=== PATIENT | male | born 1930 | race Caucasian/White ===

== ENCOUNTER 2016-09-26 13:22 | Inpatient (IN) | payer MEDICARE, OTHER ==
[~2016-09-26] VITALS: Ht 188 cm; Wt 83.9 kg
[2016-09-26] VITALS (11 sets, daily range): BP systolic 103–127; BP diastolic 55–88
[2016-09-26] MEDS ORDERED: NS IV 1000 ML 1,000 ML ONE (14:42)
--- NOTE | 2016-09-26 14:59 | Consultation ---
History of Present Illness History of Present Illness Patient Consulted On(baldo/time) 09/26/16 14:53 Date of Admission 09/26/16 History of Present Illness Pt is an 86 yo male transferred down from [facility]. Pt apparently was at home and had a syncopal episode and reported black tarry stools for 2-3 days, 5-6 BM's per day. Pt denies striking his head and does not complain of any head or neck pain. He was hypotensive in the ER at [place], but was transfused 1 unit PRBC and give 1 liter of fluid. Since then his SBP has been above 100 and MAP has been 65- 70. I met pt in the ICU when he got here. He denies abdominal pain, states he has not passed out before this episode. He denies previous black tarry stools, no hematochezia. Denies any hematemesis. He denies fever or chills. He does not appear to be in any distress. Allergies and Home Medications Allergies Coded Allergies: Penicillins (Verified Allergy, Unknown, 09/26/16) Past Piehdrn-Xaajth-Rqceqn Hx Patient Social History Alcohol Use: Denies Use Recreational Drug Use: No Smoking Status: Former Smoker (smoked for 34 years) Cigarettes Per Day: 20 Former Smoker/When Quit: Feb 28, 1987 Type Used: Cigarettes 2nd Hand Smoke Exposure: No Recent Foreign Travel: No Contact w/Someone Who Travel: No Recent Infectious Disease Expo: No Recent Hopitalizations: No Seasonal Allergies Seasonal Allergies: No Surgeries HX Surgeries: Yes Surgeries: Appendectomy, CABG, Defibrillator, Gallbladder, Prostatectomy Respiratory Hx Respiratory Disorders: No Cardiovascular Hx Cardiac Disorders: Yes Cardiac Disorders: Atrial Fibrillation, Coronary Artery Disease, Hypertension Neurological Hx Neurological Disorders: No Reproductive System Hx Reproductive Disorders: No Sexually Transmitted Disease: No HIV/AIDS: No Genitourinary Genitourinary Disorders: Prostate Problems Gastrointestinal Hx Gastrointestinal Disorders: Yes Gastrointestinal Disorders: Gastrointestinal Bleed, Gall Bladder Disease Musculoskeletal Hx Musculoskeletal Disorders: Yes Musculoskeletal Disorders: Arthritis Endocrine Hx Endocrine Disorders: No HEENT HX ENT Disorders: No Loss of Vision: Denies Hearing Impairment: Hard of Hearing Cancer Hx Cancer: No Psychosocial Hx Psychiatric Problems: No Integumentary HX Skin/Integumentary Disorder: No Blood Transfusions Hx Blood Disorders: No Adverse Reaction to a Blood Tr: No Family Medical History Significant Family History: Other Conditions/Hx (Pt denies any DM, CAD or HTN in his parents or siblings. Although, he also doesn't quite remember) Review of Systems-General Constitutional: No chills, No diaphoresis, dizziness EENTM: No blurred vision, No epistaxis, No mouth swelling, No nose congestion, No throat pain Respiratory: No cough, No dyspnea on exertion, No hemoptysis Cardiovascular: No chest pain, Hx of Intervention, palpitations Gastrointestinal: No abdominal pain, No jaundice, melena, No nausea, No vomiting Genitourinary: No dysuria, No frequency, No hematuria Musculoskeletal: joint pain, joint swelling, muscle stiffness Skin: No change in color, No change in hair/nails Psychiatric/Neurological: Denies Anxiety, Depressed, Denies Pre-Existing Deficit, Denies Seizure, Denies Tremors, Other (syncope and light headedness) Other pt denies any heat or cold intolerance. He does bruise easily but is on Xarelto Physical Exam-General Problems Physical Exam Vital Signs Capillary Refill : General Appearance: WD/WN, no apparent distress Eyes: Bilateral Eye EOMI, Bilateral Eye PERRL HEENT: pharynx normal, No scleral icterus (R), No scleral icterus (L) Neck: supple, normal inspection, No tender midline, No thyromegaly Respiratory: lungs clear, normal breath sounds, no respiratory distress, no accessory muscle use Cardiovascular: regular rate, rhythm, no edema, no murmur Peripheral Pulses: 4+ Carotid (R), 4+ Carotid (L), 4+ Radial Pulses (R), 4+ Radial Pulses (L) Gastrointestinal: non tender, soft, no organomegaly, no pulsatile mass, other ( pt has multiple scars from previous surgery) Rectal: deferred Back: no CVA tenderness, no vertebral tenderness Extremities: non-tender, no pedal edema, no calf tenderness Neurologic/Psychiatric: chief chemist II-XII nml as tested, no motor/sensory deficits, alert, normal mood/affect, oriented x 3, other (pt doesn't remember everything, so has hard time answering some questions (mostly about family hx, etc)) Skin: warm/dry, ecchymosis (on hand and arms), pallor (very mild) Lymphatic: no adenopathy (neck, axilla or groin) Assessment/Plan Assessment/Plan Assessment/Plan 1. Upper GI bleed - monitor H/H, vitals. NPO after midnight. Plan for EGD at 9am tomorrow Discussed all risks and complications with pt; including but not limited to pain, bleeding, esophageal rupture 2. CAD, A fib - defibrillator implanted 3. Anemia - s/p transfusion, will monitor and hopefully EGD will help with diagnosis 4. Thrombocytopenia - new according to pt, Hematology consulted. This will increase pt's risks with EGD. 5. HTN- continue meds, but hold if SBP drops below 100 SAUL LISA DO Sep 26, 2016 14:59
[2016-09-26] MEDS: NS IV 1000 ML 1,000 ML IV SCH ×2 (15:00→23:37)
[2016-09-26] MEDS ORDERED: ATOR20TA49 PO (15:07)
[2016-09-26] MEDS ORDERED: RAMI5CAP PO (15:07)
[2016-09-26] MEDS ORDERED: CARV12.52 PO (15:07)
[2016-09-26] MEDS ORDERED: RIVA20TA PO (15:07)
[2016-09-26] MEDS ORDERED: ASPI-999 PO (15:08)
[2016-09-26 15:58] LABS: BASOPHILS # (AUTO) 0.1 10^3/uL (0.0-0.1); BASOPHILS % (AUTO) 1 % (0-10); EOSINOPHILS # (AUTO) 0.2 10^3/uL (0.0-0.3); EOSINOPHILS % (AUTO) 2 % (0-10); LYMPHOCYTES # (AUTO) 1.9 X 10^3 (1.0-4.0); LYMPHOCYTES % (AUTO) 15 % (12-44); MEAN CORPUSCULAR HEMOGLOBIN 26 PG (25-34); MEAN CORPUSCULAR HGB CONC 33 G/DL (32-36); MEAN CORPUSCULAR VOLUME 80 FL (80-99); MEAN PLATELET VOLUME 9.8 FL (7.4-10.4); MONOCYTES # (AUTO) 0.7 X 10^3 (0.0-1.0); MONOCYTES % (AUTO) 5 % (0-12); NEUTROPHILS # (AUTO) 9.7 X 10^3 (1.8-7.8); NEUTROPHILS % (AUTO) 77 % (42-75); RED BLOOD COUNT 4.43 10^6/uL (4.35-5.85); RED CELL DISTRIBUTION WIDTH 16.1 % (10.0-14.5); RETICULOCYTE % 1.44 % (0.50-2.40); WHITE BLOOD COUNT 12.6 10^3/uL (4.3-11.0)
--- NOTE | 2016-09-26 15:59 | History & Physical-Hospitalist ---
HPI History of Present Illness: HPI/Chief Complaint 86yoCM with PMH of CAD s/p CABG and AICD placement on Xarelto presented to OSH with CC of syncope and melena x2-3 days. He reports he fell and was very weak this morning and was unable to get up. He immediately called EMS which brought him to [facility]. He was found to have black tarry stools, an acute drop in his baseline hgb from 16->11 and to be profoundly thrombocytopenic at 12k. His SBP was 60. He was given 1L NS and 1u pRBCs and transferred here. Upon my exam he denies any complaints. He reports he is doing well and does not feel SOB, fatigued, or weak. He is unsure of the reason he is on Xarelto. He denies any history of blood clots or a-fib (though this is listed on his history here) . He otherwise has no complaints. Source: patient, family, RN/MD Exam Limitations: no limitations Date Seen 09/26/16 Attending Physician Markos Colindres MD PCP Unknown Referring Physician Date of Admission Sep 26, 2016 at 14:41 Home Medications & Allergies Home Medications Reviewed patient Home Medication Reconciliation Form Allergies Allergies Coded Allergies Penicillins (Verified Allergy, Unknown, 09/26/16) Past Jchwpkt-Xdnrus-Rnocar Hx Patient Social History Marrital Status: Alcohol Use: Denies Use Recreational Drug Use: No Smoking Status: Former Smoker (smoked for 34 years) Cigaretts per day: 20 Former smoker/When Quit: Feb 28, 1987 Type Used: Cigarettes 2nd Hand Smoke Exposure: No Recent Foreign Travel: No Contact w/other who traveled: No Recent Hopitalizations: No Recent Infectious Disease Expo: No Seasonal Allergies Seasonal Allergies: No Surgeries HX Surgeries: Yes Surgeries: Appendectomy, CABG, Defibrillator, Gallbladder, Prostatectomy Respiratory Hx Respiratory Disorders: No Cardiovascular Hx Cardiovascular Disorders: Yes Cardiac Disorders: Atrial Fibrillation, Coronary Artery Disease, Hypertension Neurological Hx Neurological Disorders: No Reproductive System Hx Reproductive Disorders: No Sexually Transmitted Disease: No HIV/AIDS: No Genitourinary Genitourinary Disorders: Prostate Problems Gastrointestinal Hx Gastrointestinal Disorders: Yes Gastrointestinal Disorders: Gastrointestinal Bleed, Gall Bladder Disease Musculoskeletal Hx Musculoskeletal Disorders: Yes Musculoskeletal Disorders: Arthritis Endocrine Hx Endocrine Disorders: No HEENT HX ENT Disorders: No Loss of Vision: Denies Hearing Impairment: Hard of Hearing Cancer Hx Cancer: No Psychosocial Hx Psychiatric Problems: No Integumentary HX Skin/Integumentary Disorder: No Blood Transfusions Hx Blood Disorders: No Adverse Reaction to a Blood Tr: No Family Medical History Significant Family History: Heart Disease, Hypertension, Other Conditions/Hx ( Pt denies any DM, CAD or HTN in his parents or siblings. Although, he also doesn't quite remember) Review of Systems Constitutional: dizziness, weakness Respiratory: no symptoms reported Cardiovascular: no symptoms reported Gastrointestinal: see HPI, melena Genitourinary: other (denies hematuria,dysuria) Skin: no symptoms reported Psychiatric/Neurological: No Symptoms Reported Physical Exam Physical Exam Vital Signs Vital Sign - Last 12Hours 09/26/16 14:42 B/P (MAP) 120/88 Capillary Refill : General Appearance: No Apparent Distress, WD/WN Eyes: Bilateral Eye Normal Inspection, Bilateral Eye PERRL HEENT: PERRL/EOMI, Pharynx Normal Neck: Non Tender, Supple Respiratory: Chest Non Tender, Lungs Clear Cardiovascular: Regular Rate, Rhythm, No Edema, No JVD, No Murmur Gastrointestinal: Normal Bowel Sounds, No Organomegaly, Non Tender, Soft Rectal: Normal Exam, Black Stool Back: Normal Inspection Skin: Other (redness/stage 1 ulcer on coccyx) Results Results/Procedures Lab Laboratory Tests 09/26/16 15:47 Assessment/Plan Admission Diagnosis upper gi bleed Assessment and Plan Upper GI Bleed - IV Protonix - CBC/Coags now -H&H Q6 - Surgeyry consulted, appreciate recs - NPO, EGD in AM - T&S - Check FOBT here (though on my exam melena apparent) Reported Thrombocytopenia - ?consumptive vs lab error - Repeating CBC now, along with d dimer, fibrinogen, smear - no purpura seen - Hem consulted/ appreciate recs - transfuse to keep plts >50k given active bleed if they remain low on recheck CAD s/p CABG questionable h/o a-fib - Hold Xarelto - Monitor BP closely and hold home antihypertensives/BB - Unsure of systolic function so will monitor I/Os closely - Presuming poor EF given AICD placement - Continuous pulse ox to monitor resp status Dispo: EGD in AM. Monitor in ICU overnight. Markos Colindres MD 51min critical care time spent directing patient care. MARKOS COLINDRES MD Sep 26, 2016 15:59
[2016-09-26 16:12] LABS: PATH WILL NEED TO REVIEW SMEAR PATH TO REVIEW; PLATELET COUNT 1059 10^3/uL (130-400)
[2016-09-26 16:14] LABS: ALANINE AMINOTRANSFERASE 40 U/L (0-55); ALBUMIN 3.1 G/DL (3.2-4.5); ANION GAP 7 MMOL/L (5-14); ASPARTATE AMINO TRANSFERASE 31 U/L (5-34); BILIRUBIN,TOTAL 1.3 MG/DL (0.1-1.0); BLOOD UREA NITROGEN 38 MG/DL (7-18); BUN/CREATININE RATIO 44; CALCIUM 8.3 MG/DL (8.5-10.1); CARBON DIOXIDE 21 MMOL/L (21-32); CHLORIDE 112 MMOL/L (98-107); CREATININE SERUM 0.86 MG/DL (0.60-1.30); GFR ESTIMATED > 60; GLUCOSE 108 MG/DL (70-105); POTASSIUM 4.3 MMOL/L (3.6-5.0); SODIUM 140 MMOL/L (135-145); TOTAL PROTEIN 5.5 G/DL (6.4-8.2)
[2016-09-26 16:33] LABS: INR 1.5 (0.8-1.4)
[2016-09-26 16:46] LABS: EOSINOPHILS % (MANUAL) 2 %; LYMPHOCYTES % (MANUAL) 13 %; NEUTROPHILS % (MANUAL) 84 %
[2016-09-26 16:47] LABS: BURR CELLS SLIGHT; POIKILOCYTOSIS SLIGHT
--- NOTE | 2016-09-26 18:11 | Oncology Consultation ---
Visit Information Visit Information Date of Admission Sep 26, 2016 at 14:41 Attending Physician Nedra Colindres MD Admitting Physician Unknown Chief Complaint weak and near pass out, black tarry stool Interval History Mr. Wade is a 86 year old white man transferred from [facility] to our ICU for management of acute GI bleeding, hypotension noticed at local ER and syncope episode. Pt is a poor historian. He told me that he had black stool and felt weak for 2-3 days. He has been on Xarelto for CAD, s/p stents and patient said that he was on it for many years. He could not remember that last time he saw his family doctor or case sealer. No fever chills. No abdominal pain or heart burn. No constipation. He wants to know when he can go home. I consulted the patient on: 09/26/16 18:05 Constitutional: dizziness Respiratory: no symptoms reported Cardiovascular: syncope Gastrointestinal: melena Health Status Allergies Coded Allergies: Penicillins (Verified Allergy, Unknown, 09/26/16) Home Medications Aspirin (Aspirin) 81 Mg Tab.chew, 81 MG PO DAILY, (Reported) Atorvastatin Calcium (Lipitor) 20 Mg Tablet, 20 MG PO HS, (Reported) Carvedilol (Coreg) 12.5 Mg Tablet, 12.5 MG PO BID, (Reported) Ramipril (Altace) 5 Mg Capsule, 5 MG PO DAILY, (Reported) Rivaroxaban (Xarelto) 20 Mg Tablet, 20 MG PO DAILY, (Reported) AIR-Lbqgja-Mtgkof Hx Patient Social History Marrital Status: Alcohol Use: Denies Use Recreational Drug Use: No Smoking Status: Former Smoker Cigaretts per day: 20 Former smoker/When Quit: Feb 28, 1987 Type Used: Cigarettes 2nd Hand Smoke Exposure: No Recent Foreign Travel: No Contact w/other who traveled: No Recent Infectious Disease Expo: No Recent Hopitalizations: Yes ([place] FROM [place]) Physical Abuse Screen: No Sexual Abuse: No Family Medical History Significant Family History: Heart Disease, Hypertension, Other Conditions/Hx ( Pt denies any DM, CAD or HTN in his parents or siblings. Although, he also doesn't quite remember) Family History: Patient reports no known family medical history. Physical Exam Vital Signs Vital Sign - Last 12Hours 09/26/16 14:35 Temp 96.8 Pulse 77 Resp 15 B/P (MAP) 120/67 Pulse Ox 98 O2 Delivery Room Air Capillary Refill : Less Than 3 Seconds General Appearance: No Apparent Distress HEENT: PERRL/EOMI Neck: Non Tender, Supple Respiratory: Lungs Clear, No Accessory Muscle Use, No Respiratory Distress Cardiovascular: Regular Rate, Rhythm, No Edema, No JVD, No Murmur, Other ( pacemaker cardiac device) Gastrointestinal: Non Tender, Soft Extremity: Non Tender Neurologic/Psychiatric: Alert, Oriented x3 Data Review Labs Laboratory Tests 09/26/16 15:47 09/26/16 23:39 09/27/16 06:00 Laboratory Tests 09/26/16 15:47: White Blood Count 12.6H, Hemoglobin 11.7L, Hematocrit 36L, Red Cell Distribution Width 16.1H, Platelet Count 1059*H, Neutrophils (%) (Auto) 77H, Neutrophils # (Auto) 9.7H, Prothrombin Time 18.0H, INR Comment 1.5H, Chloride Level 112H, Blood Urea Nitrogen 38H, Glucose Level 108H, Calcium Level 8.3L, Total Bilirubin 1.3H, Total Protein 5.5L, Albumin 3.1L 09/26/16 23:39: Hemoglobin 11.6L, Hematocrit 35L 09/27/16 06:00: Hemoglobin 11.8L, Hematocrit 36L, Red Cell Distribution Width 16.3H, Platelet Count 1049*H, Neutrophils # (Auto) 8.0H, Chloride Level 113H, Blood Urea Nitrogen 26H, Glucose Level 108H, Calcium Level 8.4L, Basophils # (Auto) 0.2H, Carbon Dioxide Level 20L Impression & Plan Impression & Plan IMP: 1. Acute GI bleeding with black tarry stool, hypotension and syncope episodes. 2. Thrombocytosis, Plt over a million. Most likely reactive but can not completely rule out polycythemia vera (PV) or essential thrombocytosis (ET) 3. Anemia Hb 11. Pt had one unit of RBC transfusion at local hospital before the transfer 4. Mildly elevated leukocytosis, most likely reactive 5. CAD, ? h/o AFib, s/p stents on Xarelto. Plan: 1. Stop Xarelto for now until we know what is going on in his GI track. 2. Agree GI scope tomorrow. 3. No RBC transfusion needed unless Hb below 9. Monitor Hb and Hct q6hrs for next 24hrs. 4. Agree with Protonix 5. Gentle IVF 6. Once GI bleeding stops and stable, he can go home but needs to have follow up with me at the cancer center clinic in 1-2 weeks to make sure that his blood counts back to normal. 7. Will check ALAINA-2 mutation from the blood, if +, then highly suggestive of PV , I will arrange bone marrow asp/biospy as out-pt procedure. ALLI PRATT MD Sep 26, 2016 18:11
--- NOTE | 2016-09-26 18:28 | Consultation-Cardiology ---
HPI-Cardiology Cardiology Consultation Date of Consultation 09/26/16 Date of Admission Indication: GI bleed HPI 86-year-old gentleman with history of coronary artery disease, history of pacemaker/ICD, patient is a poor historian does not recall any of his cardiac problems. Expressed that his been having melanotic stool for the last 2-3 days , today he had a syncopal episode, has been having significant weakness, unable to provide full detailed history, the history was obtained by reviewing his records. He was noted to have anemia, received blood transfusion and IV fluid, scheduled for possible endoscopy. Currently laying down in bed, feeling better , reporting that he is expecting to go home tomorrow, initially in the emergency room he was hypotensive. Currently blood pressure is better Home Medications & Allergies Allergies: Coded Allergies: Penicillins (Verified Allergy, Unknown, 09/26/16) Home Medication List Reviewed: Yes TWX-Sdzwqr-Wscukd Hx Patient Social History Marital Status: Alcohol Use: Denies Use Recreational Drug Use: No Smoking Status: Former Smoker Cigaretts per day: 20 Former smoker/When Quit: Feb 28, 1987 Type Used: Cigarettes 2nd Hand Smoke Exposure: No Recent Foreign Travel: No Recent Infectious Disease Expo: No Recent Hopitalizations: Yes ([place] FROM [place]) Physical Abuse Screen: No Sexual Abuse: No Past Medical History past medical history as discussed with Family Medical History Significant Family History: Heart Disease, Hypertension, Other Conditions/Hx ( Pt denies any DM, CAD or HTN in his parents or siblings. Although, he also doesn't quite remember) Family Medical Hx noncontributory to his current condition Family History: Patient reports no known family medical history. Constitutional: see HPI, malaise, weakness EENTM: no symptoms reported, see HPI Respiratory: no symptoms reported, see HPI Cardiovascular: see HPI, No chest pain, No edema, No Hx of Intervention, No palpitations, No syncope, No vascular heart diseas, No other Gastrointestinal: no symptoms reported, see HPI Genitourinary: no symptoms reported, see HPI Musculoskeletal: no symptoms reported, see HPI Skin: no symptoms reported, see HPI Psychiatric/Neurological: No Symptoms Reported, See HPI Reviewed Test Results Reviewed Test Results Lab Laboratory Tests Test 09/26/16 15:47 Range/Units White Blood Count 12.6 H 4.3-11.0 10^3/uL Red Blood Count 4.43 4.35-5.85 10^6/uL Hemoglobin 11.7 L 13.3-17.7 G/DL Hematocrit 36 L 40-54 % Mean Corpuscular Volume 80 80-99 FL Mean Corpuscular Hemoglobin 26 25-34 PG Mean Corpuscular Hemoglobin Concent 33 32-36 G/DL Red Cell Distribution Width 16.1 H 10.0-14.5 % Platelet Count 1059 *H 130-400 10^3/uL Mean Platelet Volume 9.8 7.4-10.4 FL Neutrophils (%) (Auto) 77 H 42-75 % Lymphocytes (%) (Auto) 15 12-44 % Monocytes (%) (Auto) 5 0-12 % Eosinophils (%) (Auto) 2 0-10 % Basophils (%) (Auto) 1 0-10 % Neutrophils # (Auto) 9.7 H 1.8-7.8 X 10^3 Lymphocytes # (Auto) 1.9 1.0-4.0 X 10^3 Monocytes # (Auto) 0.7 0.0-1.0 X 10^3 Eosinophils # (Auto) 0.2 0.0-0.3 10^3/uL Basophils # (Auto) 0.1 0.0-0.1 10^3/uL Neutrophils % (Manual) 84 % Lymphocytes % (Manual) 13 % Monocytes % (Manual) 1 % Eosinophils % (Manual) 2 % Smudge Cells SLIGHT Platelet Estimate INCREASED Poikilocytosis SLIGHT Leif Cells SLIGHT Elliptocytes SLIGHT Blood Morphology Comment Absolute Reticulocyte Count 64 24-90 10e9/L Percent Reticulocyte Count 1.44 0.50-2.40 % Prothrombin Time 18.0 H 12.2-14.7 SEC INR Comment 1.5 H 0.8-1.4 Fibrinogen 229 221-496 MG/DL D-Dimer 0.30 0.00-0.49 UG/ML Sodium Level 140 135-145 MMOL/L Potassium Level 4.3 3.6-5.0 MMOL/L Chloride Level 112 H 98-107 MMOL/L Carbon Dioxide Level 21 21-32 MMOL/L Anion Gap 7 5-14 MMOL/L Blood Urea Nitrogen 38 H 7-18 MG/DL Creatinine 0.86 0.60-1.30 MG/DL Estimat Glomerular Filtration Rate > 60 BUN/Creatinine Ratio 44 Glucose Level 108 H 70-105 MG/DL Calcium Level 8.3 L 8.5-10.1 MG/DL Total Bilirubin 1.3 H 0.1-1.0 MG/DL Aspartate Amino Transf (AST/SGOT) 31 5-34 U/L Alanine Aminotransferase (ALT/SGPT) 40 0-55 U/L Alkaline Phosphatase 49 40-136 U/L Total Protein 5.5 L 6.4-8.2 G/DL Albumin 3.1 L 3.2-4.5 G/DL Physical Exam Vital Signs Vital Sign - Last 12Hours 09/26/16 14:35 Temp 96.8 Pulse 77 Resp 15 B/P (MAP) 120/67 Pulse Ox 98 O2 Delivery Room Air Capillary Refill : Less Than 3 Seconds General Appearance: WD/WN, Mild Distress Eyes: Bilateral Eye EOMI, Bilateral Eye Normal Inspection, Bilateral Eye PERRL HEENT: PERRL/EOMI, TMs Normal, Normal ENT Inspection, Pharynx Normal Neck: Full Range of Motion, Normal Inspection, Non Tender, Supple, Carotid Bruit Respiratory: Chest Non Tender, Lungs Clear, Normal Breath Sounds, No Accessory Muscle Use, No Respiratory Distress Cardiovascular: No Edema, No Gallop, No JVD, Normal Peripheral Pulses, Systolic Murmur, Gallop/S3 Gastrointestinal: Normal Bowel Sounds, No Organomegaly, No Pulsatile Mass, Non Tender, Soft Back: Normal Inspection, No CVA Tenderness, No Vertebral Tenderness Extremity: Normal Capillary Refill, Normal Inspection, Normal Range of Motion, Non Tender, No Calf Tenderness, No Pedal Edema Neurologic/Psychiatric: Alert, Oriented x3, No Motor/Sensory Deficits, Normal Mood/Affect Skin: Normal Color, Warm/Dry Lymphatic: No Adenopathy A/P-Cardiology Admission Diagnosis GI bleed Anemia Coronary artery disease Hypotension Assessment/Plan GI bleed, probably upper GI bleed, patient has been on Xarelto which is held, continue to monitor, continue with IV fluid and blood transfusion as needed, Dr. Garcia was consulted, appreciated input. Coronary artery disease, history of CABG, currently clinically stable, abnormal EKG, I'll try to obtain copy of his records from [facility] Permanent pacemaker/ICD, appeared to be functioning normally, we'll interrogate pacemaker. Patient has been maintained on Xarelto, probably underlying atrial fibrillation , pacemaker interrogation will help once we identify the pacemaker. Anemia, secondary to GI bleed. Monitor H&H Hypotension, secondary to hypovolemia, receiving IV fluids, continue to monitor at this time. Thrombocytosis, probably reactive to bleeding. Continue to monitor, Dr. Garcia is managing. Hyperlipidemia, currently nothing by mouth. Continue to monitor. Confusion, dementia, unknown duration, managed by primary care physician History of gallstones, appendectomy, prostatectomy Clinical Quality Measures DVT/VTE Risk/Contraindication: Risk Factor Score Per Nursin RFS Level Per Nursing on Admit: 4+=Very High NIC LOVE MD Sep 26, 2016 6:28 pm
[2016-09-26] MEDS: PANTOPRAZOLE 40 MG/10 ML (PROTONIX) VIAL IV SCH (21:33)
[2016-09-27] VITALS (16 sets, daily range): BP systolic 94–148; BP diastolic 55–81
[2016-09-27] MEDS ORDERED: MAGNESIUM 1 GM/100 ML IVPB 100 ML IV SCH (06:00)
[2016-09-27] MEDS ORDERED: POTASSIUM CL 10MEQ/50ML IVPB 50 ML IV SCH (06:00)
[2016-09-27] MEDS ORDERED: KCL 20 MEQ TAB (K-DUR) PO SCH (06:00)
[2016-09-27 06:13] LABS: BASOPHILS # (AUTO) 0.2 10^3/uL (0.0-0.1); BASOPHILS % (AUTO) 2 % (0-10); EOSINOPHILS # (AUTO) 0.2 10^3/uL (0.0-0.3); EOSINOPHILS % (AUTO) 2 % (0-10); LYMPHOCYTES # (AUTO) 1.9 X 10^3 (1.0-4.0); LYMPHOCYTES % (AUTO) 17 % (12-44); MEAN CORPUSCULAR HEMOGLOBIN 26 PG (25-34); MEAN CORPUSCULAR HGB CONC 33 G/DL (32-36); MEAN CORPUSCULAR VOLUME 80 FL (80-99); MONOCYTES # (AUTO) 0.6 X 10^3 (0.0-1.0); MONOCYTES % (AUTO) 6 % (0-12); NEUTROPHILS % (AUTO) 74 % (42-75); RED BLOOD COUNT 4.48 10^6/uL (4.35-5.85); RED CELL DISTRIBUTION WIDTH 16.3 % (10.0-14.5); WHITE BLOOD COUNT 10.9 10^3/uL (4.3-11.0)
[2016-09-27 06:32] LABS: ANION GAP 6 MMOL/L (5-14); BLOOD UREA NITROGEN 26 MG/DL (7-18); BUN/CREATININE RATIO 31; CALCIUM 8.4 MG/DL (8.5-10.1); CARBON DIOXIDE 20 MMOL/L (21-32); CHLORIDE 113 MMOL/L (98-107); CREATININE SERUM 0.83 MG/DL (0.60-1.30); GFR ESTIMATED > 60; GLUCOSE 108 MG/DL (70-105); MAGNESIUM 1.9 MG/DL (1.8-2.4); PHOSPHORUS 2.3 MG/DL (2.3-4.7); PLATELET COUNT 1049 10^3/uL (130-400); POTASSIUM 4.1 MMOL/L (3.6-5.0); SODIUM 139 MMOL/L (135-145)
--- NOTE | 2016-09-27 07:57 | Oncology Progress Note ---
Subjective Subjective/Events-last exam No new issue. Hemodynamic stable GI scope today Data Review Labs Laboratory Tests 09/26/16 15:47 09/26/16 23:39 09/27/16 06:00 Laboratory Tests 09/26/16 15:47: White Blood Count 12.6H, Hemoglobin 11.7L, Hematocrit 36L, Red Cell Distribution Width 16.1H, Platelet Count 1059*H, Neutrophils (%) (Auto) 77H, Neutrophils # (Auto) 9.7H, Prothrombin Time 18.0H, INR Comment 1.5H, Chloride Level 112H, Blood Urea Nitrogen 38H, Glucose Level 108H, Calcium Level 8.3L, Total Bilirubin 1.3H, Total Protein 5.5L, Albumin 3.1L 09/26/16 23:39: Hemoglobin 11.6L, Hematocrit 35L 09/27/16 06:00: Hemoglobin 11.8L, Hematocrit 36L, Red Cell Distribution Width 16.3H, Platelet Count 1049*H, Neutrophils # (Auto) 8.0H, Chloride Level 113H, Blood Urea Nitrogen 26H, Glucose Level 108H, Calcium Level 8.4L, Basophils # (Auto) 0.2H, Carbon Dioxide Level 20L Physical Exam Vital Signs Vital Sign - Last 12Hours 09/26/16 14:35 Temp 96.8 Pulse 77 Resp 15 B/P (MAP) 120/67 Pulse Ox 98 O2 Delivery Room Air Capillary Refill : Less Than 3 Seconds Impression & Plan Impression & Plan IMP: 1. Acute GI bleeding with black tarry stool, hypotension and syncope episodes. 2. Thrombocytosis, Plt over a million. Most likely reactive but can not completely rule out polycythemia vera (PV) or essential thrombocytosis (ET) 3. Anemia Hb 11. Pt had one unit of RBC transfusion at local hospital before the transfer 4. Mildly elevated leukocytosis, most likely reactive 5. CAD, ? h/o AFib, s/p stents on Xarelto. Plan: 1. Stop Xarelto for now until we know what is going on in his GI track. 2. GI scope today 3. No RBC transfusion needed unless Hb below 9. 4. Agree with Protonix 5. Gentle IVF 6. Once GI bleeding stops and stable, he can go home but needs to have follow up with me at the cancer center clinic within one week to make sure that his blood counts back to normal. 7. Will check ALAINA-2 mutation from the blood, if +, then highly suggestive of PV or ET, I will arrange bone marrow asp/biospy as out-pt procedure. Clinical Quality Measures DVT/VTE Risk/Contraindication: Risk Factor Score Per Nursin RFS Level Per Nursing on Admit: 4+=Very High ALLI PRATT MD Sep 27, 2016 07:57
--- NOTE | 2016-09-27 08:02 | Cardiology Progress Note ---
Subjective Subjective/Events-last exam patient is laying down in bed, asking to go home. Denied any chest pain, blood pressure is slightly better. No shortness of breath. Review of Systems General: No Chills, No Night Sweats, No Fatigue, No Malaise, No Appetite, No Other HEENT: No Head Aches, No Visual Changes, No Eye Pain, No Ear Pain, No Dysphasia , No Sinus Congestion, No Post Nasal Drip, No Sore Throat, No Other Pulmonary: No Dyspnea, No Cough, No Pleuritic Chest Pain, No Other Cardiovascular: No: Chest Pain, Edema, Lt Headedness, Orthopnea, Other, Palpitations, Paroxysmal Noc. Dyspnea Objective-Cardiology Exam Last Set of Vital Signs Vital Signs 09/27/16 09/27/16 09/27/16 04:00 06:00 07:00 Temp 96.0 Pulse 75 Resp 13 B/P (MAP) 99/64 Pulse Ox 91 O2 Delivery Room Air Capillary Refill : Less Than 3 Seconds I&O Bad tableGeneral: Alert, Oriented X3, Cooperative HEENT: Atraumatic, PERRLA Neck: Supple, No JVD, No Thyromegaly Lungs: Clear to Auscultation, Normal Air Movement Heart: Regular Rate, Normal S1, Normal S2, No Murmurs Abdomen: Normal Bowel Sounds, Soft, No Tenderness, No Hepatosplenomegaly, No Masses Extremities: No Clubbing, No Cyanosis, No Edema, Normal Pulses, No Tenderness/ Swelling Skin: No Rashes, No Breakdown, No Significant Lesion Neuro: Normal Gait, Normal Speech, Strength at 5/5 X4 Ext, Normal Tone, Sensation Intact Psych/Mental Status: Mental Status NL, Mood NL Results Lab Laboratory Tests 09/26/16 15:47 09/26/16 23:39 09/27/16 06:00 A/P-Cardiology Admission Diagnosis GI bleed Anemia Coronary artery disease Hypotension Assessment/Plan GI bleed, probably upper GI bleed, patient has been on Xarelto, has been on hold , last dose received on September 25, 2016. H&H appear to be more stable at this time. Continue to monitor, landing 4 endoscopy today. Coronary artery disease, history of CABG, currently clinically stable, abnormal EKG, I'll try to obtain copy of his records from [facility] Permanent pacemaker/ICD, interrogated yesterday, good sensing and capture activity, patient apparently having multiple episodes of nonsustained ventricular tachycardia, had one episode of sustained ventricular tachycardia that required pacing. I will evaluate 2-D echocardiogram Patient has been maintained on Xarelto, probably underlying atrial fibrillation , no episodes of atrial fibrillation noted, had episodes of atrial tachycardia on the pacemaker interrogation. Anemia, secondary to GI bleed, SAEZ 8 are more stable. Continue to monitor Hypotension, better at this time. Continue to monitor. Thrombocytosis, probably reactive to bleeding. Continue to monitor, Dr. Garcia is managing. Hyperlipidemia, currently nothing by mouth. Continue to monitor. Confusion, dementia, unknown duration, managed by primary care physician History of gallstones, appendectomy, prostatectomy Addendum, Echo reviewed EF 10%, PA 45 mmHg, cannot tolerate BB, ACEI, ARB due to hypotension, unknown baseline EF, I will try to obtain a copy of records, evaluate Trop Clinical Quality Measures DVT/VTE Risk/Contraindication: Risk Factor Score Per Nursin RFS Level Per Nursing on Admit: 4+=Very High NIC LOVE MD Sep 27, 2016 08:02
[2016-09-27] MEDS ORDERED: EPINEPHrine INJECTION 1 MG/ML AMP ONE (08:19)
[2016-09-27] MEDS ORDERED: HURRICAINE EXT TUBE (BENZOCAINE) ONE (08:28)
[2016-09-27] MEDS ORDERED: NALOXONE 0.4 MG/ML 1 ML (NARCAN) VIAL ONE (08:30)
[2016-09-27] MEDS ORDERED: FLUMAZENIL (ROMAZICON) 0.1 MG/ML 5 ML VIAL ONE (08:30)
--- NOTE | 2016-09-27 08:42 | Diagnostic Imaging Report ---
INDICATION: GI bleed. No prior examinations are available for comparison. FINDINGS: There is cardiomegaly. There has been a previous median sternotomy. Pacemaker overlies the left hemithorax. There is venous congestion. There is a more focal alveolar infiltrate in the left midlung and medial aspect of the right lung base. There is a small left pleural effusion. There is no pneumothorax. IMPRESSION: Bilateral pulmonary infiltrates and left pleural effusion. Cardiomegaly and some central pulmonary venous congestion Dictated by: Dictated on workstation # [id number]
[2016-09-27] MEDS ORDERED: proPOfol 200 MG/20 ML (DIPRIVAN) VIAL IV ONE ×2 (08:44→09:00)
--- NOTE | 2016-09-27 09:51 | Progress Note-Post Operative ---
Post-Operative Progess Note Surgeon (s)/Lathe Set Up Operator (s) Surgeon SAUL LISA DO Lathe Set Up Operator: none Pre-Operative Diagnosis Melena Post-Operative Diagnosis Gastritis Hiatal Hernia Post-Op Procedure Note Date of Procedure: Sep 27, 2016 Name of Procedure Performed: EGD with bx Description of the Procedure: as above Findings of the Procedure gastritis Anesthesia Type IV sedation Estimated blood loss (mL): scant Specimen(s) collected/removed antral bx SAUL LISA DO Sep 27, 2016 09:51
--- NOTE | 2016-09-27 10:00 | Progress Note-Hospitalist ---
Subjective HPI/CC On Admission 86yoCM with PMH of CAD s/p CABG and AICD placement on Xarelto presented to OSH with CC of syncope and melena x2-3 days. He reports he fell and was very weak this morning and was unable to get up. He immediately called EMS which brought him to [facility] ER. He was found to have black tarry stools, an acute drop in his baseline hgb from 16->11 and to be profoundly thrombocytopenic at 12k. His SBP was 60. He was given 1L NS and 1u pRBCs and transferred here. Date Seen 09/27/16 Subjective/Events-last exam Reports doing well overnight. No more dark stools per him. Is getting ready for EGD today. He denies any other complaints. at bedside and concerned about his AICD working. Informed interrogated by cardiology yesterday. No other concerns. Objective Exam Vital Signs Vital Sign - Last 12Hours 09/26/16 14:35 Temp 96.8 Pulse 77 Resp 15 B/P (MAP) 120/67 Pulse Ox 98 O2 Delivery Room Air Capillary Refill : Less Than 3 Seconds General Appearance: No Apparent Distress, WD/WN Respiratory: Chest Non Tender, Lungs Clear, No Respiratory Distress Cardiovascular: Regular Rate, Rhythm, No Edema, No JVD, No Murmur Gastrointestinal: Normal Bowel Sounds, Non Tender, Soft, No Distended, No Guarding, No Rebound Neurologic/Psychiatric: Alert, Oriented x3, Normal Mood/Affect Results/Procedures Lab Laboratory Tests 09/26/16 15:47 09/26/16 23:39 09/27/16 06:00 Assessment/Plan Assessment and Plan Assess & Plan/Chief Complaint Upper GI Bleed - IV Protonix - Hemoglobin stable overnight - Surgery consulted, appreciate recs - NPO, EGD today - Check FOBT here (though on my exam melena apparent) Thrombocytosis - Likely reactive - Hem consulted/ appreciate recs CAD s/p CABG questionable h/o a-fib - Hold Xarelto - Monitor BP closely and hold home antihypertensives/BB - Unsure of systolic function so will monitor I/Os closely - Presuming poor EF given AICD placement, echo done today, awaiting results - Multiple episodes of nonsustained v-tach overnight HTN - Holding antihypertensives given soft BP FEN/GI/ppx - SCDS given GI bleeding - NPO for EGD - NS at 100ml Dispo: EGD today, Transfer out of ICU today if ok with consultants. MD SHONA Gibbs KATELYN M MD Sep 27, 2016 10:00
--- NOTE | 2016-09-27 10:01 | Progress Note ---
Subjective Subjective/Events-last exam Pt seen and examined, seen just prior to EGD; note entered after. He had no hematemesis, denied any dizziness today. he did report some episodes of dizziness yesterday and according to Advanced Practice Nurse Psychotherapist defibrillator showed episodes of PVC's yesterday. He is hungry, denies any abdominal pain. Denies chest pain. Review of Systems General: No Chills, No Night Sweats HEENT: No Head Aches Pulmonary: No Dyspnea, No Cough Cardiovascular: Lt Headedness, Palpitations, No: Chest Pain Gastrointestinal: No: Abdominal Pain, Nausea, Vomiting Objective Exam Vital Signs Date Time Temp Pulse Resp B/P (MAP) Pulse Ox O2 Delivery O2 Flow Rate FiO2 09/27/16 07:00 75 09/27/16 06:00 75 13 99/64 91 Room Air 09/27/16 05:00 78 12 129/69 92 Room Air 09/27/16 04:00 96.0 75 21 104/66 92 Room Air 09/27/16 03:00 79 20 117/61 95 Room Air 09/27/16 02:00 75 17 107/56 94 Room Air 09/27/16 01:00 75 09/27/16 01:00 75 15 105/64 92 Room Air 09/27/16 00:00 75 21 104/66 92 Room Air 09/26/16 23:37 96.4 09/26/16 23:00 74 8 109/69 91 Room Air 09/26/16 22:00 76 10 103/61 91 Room Air 09/26/16 21:00 75 22 117/61 95 Room Air 09/26/16 20:00 96.2 09/26/16 20:00 77 25 105/65 94 Room Air 09/26/16 19:00 75 09/26/16 19:00 75 20 105/55 93 Room Air 09/26/16 18:00 79 24 124/72 96 09/26/16 17:00 79 22 109/67 97 09/26/16 16:00 98 09/26/16 16:00 73 35 112/67 96 09/26/16 15:00 127/69 09/26/16 14:45 98 09/26/16 14:42 120/88 09/26/16 14:35 96.8 77 15 120/67 98 Room Air I & O 09/27/16 07:00 Intake Total 1100 ml Output Total 1500 ml Balance -400 ml Capillary Refill : Less Than 3 Seconds General Appearance: No Apparent Distress, WD/WN HEENT: PERRL/EOMI, Pharynx Normal Neck: Non Tender, Supple Respiratory: Lungs Clear, No Accessory Muscle Use, No Respiratory Distress Cardiovascular: No Edema, No JVD, No Murmur, Other (pacemaker cardiac device) Peripheral Pulses: 4+ Carotid (R), 4+ Carotid (L), 4+ Radial Pulses (R), 4+ Radial Pulses (L) Gastrointestinal: non tender, soft, no organomegaly, no pulsatile mass, other ( pt has multiple scars from previous surgery) Extremity: Non Tender Neurologic/Psychiatric: Alert, Oriented x3 Skin: Normal Color, Warm/Dry Lymphatic: No Adenopathy Results Lab Laboratory Tests 09/26/16 15:47: White Blood Count 12.6H, Red Blood Count 4.43, Hemoglobin 11.7L, Hematocrit 36L , Mean Corpuscular Volume 80, Mean Corpuscular Hemoglobin 26, Mean Corpuscular Hemoglobin Concent 33, Red Cell Distribution Width 16.1H, Platelet Count 1059*H , Mean Platelet Volume 9.8, Neutrophils (%) (Auto) 77H, Lymphocytes (%) (Auto) 15, Monocytes (%) (Auto) 5, Eosinophils (%) (Auto) 2, Basophils (%) (Auto) 1, Neutrophils # (Auto) 9.7H, Lymphocytes # (Auto) 1.9, Monocytes # (Auto) 0.7, Eosinophils # (Auto) 0.2, Basophils # (Auto) 0.1, Neutrophils % (Manual) 84, Lymphocytes % (Manual) 13, Monocytes % (Manual) 1, Eosinophils % (Manual) 2, Smudge Cells SLIGHT, Platelet Estimate INCREASED, Poikilocytosis SLIGHT, Leif Cells SLIGHT, Elliptocytes SLIGHT, Blood Morphology Comment , Absolute Reticulocyte Count 64, Percent Reticulocyte Count 1.44, Prothrombin Time 18.0H, INR Comment 1.5H, Fibrinogen 229, D-Dimer 0.30, Sodium Level 140, Potassium Level 4.3, Chloride Level 112H, Carbon Dioxide Level 21, Anion Gap 7, Blood Urea Nitrogen 38H, Creatinine 0.86, Estimat Glomerular Filtration Rate > 60, BUN /Creatinine Ratio 44, Glucose Level 108H, Calcium Level 8.3L, Total Bilirubin 1.3H, Aspartate Amino Transf (AST/SGOT) 31, Alanine Aminotransferase (ALT/SGPT) 40, Alkaline Phosphatase 49, Total Protein 5.5L, Albumin 3.1L 09/26/16 23:39: Hemoglobin 11.6L, Hematocrit 35L 09/27/16 06:00: White Blood Count 10.9, Red Blood Count 4.48, Hemoglobin 11.8L, Hematocrit 36L, Mean Corpuscular Volume 80, Mean Corpuscular Hemoglobin 26, Mean Corpuscular Hemoglobin Concent 33, Red Cell Distribution Width 16.3H, Platelet Count 1049*H , Mean Platelet Volume 10.0, Neutrophils (%) (Auto) 74, Lymphocytes (%) (Auto) 17, Monocytes (%) (Auto) 6, Eosinophils (%) (Auto) 2, Basophils (%) (Auto) 2, Neutrophils # (Auto) 8.0H, Lymphocytes # (Auto) 1.9, Monocytes # (Auto) 0.6, Eosinophils # (Auto) 0.2, Basophils # (Auto) 0.2H, Sodium Level 139, Potassium Level 4.1, Chloride Level 113H, Carbon Dioxide Level 20L, Anion Gap 6, Blood Urea Nitrogen 26H, Creatinine 0.83, Estimat Glomerular Filtration Rate > 60, BUN /Creatinine Ratio 31, Glucose Level 108H, Calcium Level 8.4L, Phosphorus Level 2.3, Magnesium Level 1.9 Assessment/Plan Assessment/Plan Assessment/Plan 1. Upper GI bleed - monitor H/H, vitals. S/P EGD mild gastritis seen in antrum , no other signs of bleeding. Will need colonoscopy, can do as an outpt. 2. CAD, A fib - defibrillator implanted- working per Cardiology 3. Anemia - s/p transfusion, will monitor 4. Thrombocytosis (I was wrong yesterday, misinformed - told platelet level was 10 and unfortunately did not look at labs myself. He does not have thrombocytopenia - he has thrombocytosis) new according to pt, Hematology consulted. 5. HTN- continue meds, but hold if SBP drops below 100 Clinical Quality Measures DVT/VTE Risk/Contraindication: Risk Factor Score Per Nursin RFS Level Per Nursing on Admit: 4+=Very High SAUL LISA DO Sep 27, 2016 10:01
--- NOTE | 2016-09-27 10:22 | OPERATIVE REPORT ---
DATE OF SERVICE: 09/27/2016 PREOPERATIVE DIAGNOSES: 1. Melena. 2. Hypotension. 3. Coronary artery disease. POSTOPERATIVE DIAGNOSES: 1. Melena. 2. Hypotension. 3. Coronary artery disease. 4. Gastritis. 5. Hiatal hernia. PROCEDURE PERFORMED: EGD with biopsy. SURGEON: Oniel Romero D.O. ARMORED CAR GUARD AND DRIVER: None. ANESTHESIA: IV sedation by the COATING AND EMBOSSING UNIT OPERATOR. SPECIMEN: Antral biopsy. BLOOD LOSS: Scant. FLUIDS: Per anesthesia. POSTOPERATIVE CONDITION: Stable. INDICATIONS FOR PROCEDURE: The patient is an 86-year-old male who had an episode of black tarry stool with hypotension, anemia and transferred from an outside hospital to the ICU here. FINDINGS: The patient had some mild gastritis in the stomach, nothing seen in the duodenum. No ulcers. No sources of bleeding. Had a biopsy done of the antrum. PROCEDURE NOTE: After informed consent was obtained, the patient in his bed was given sedation by the COATING AND EMBOSSING UNIT OPERATOR. Vitals were monitored. Scope was then inserted down the mouth and down the esophagus into the stomach. I saw some gastritis in the stomach, a little bit red, but did not see any ulcers or active bleeding. Pushed into the first portion of the duodenum and down into the second portion of the duodenum. Again did not see any sources of bleeding, no ulcers. There was an area of possible maybe healed ulcer, took a picture of this, but again no active bleeding, no open vessels. I pulled back into the antrum, did a biopsy of the antrum, then retroflexed in the stomach, saw what appeared to be a small hiatal hernia. I pulled up into the esophagus, again saw the small hiatal hernia, took a picture and then removed the scope. The patient tolerated the procedure and he was recovered in his ICU bed. Job ID: [id number] DocumentID: [id number] Dictated Date: 09/27/2016 09:54:33 Sales Service Supervisor Date: 09/27/2016 10:21:09 Dictated By: ONIEL ROMERO DO
[2016-09-27] MEDS ORDERED: HURRICAINE EXT TUBE (BENZOCAINE) XX ONE (10:30)
[2016-09-27] MEDS: PANTOPRAZOLE 40 MG/10 ML (PROTONIX) VIAL IV SCH ×2 (11:16→21:12)
[2016-09-27] MEDS: NS IV 1000 ML 1,000 ML IV SCH ×2 (11:17→18:33)
--- NOTE | 2016-09-27 12:24 | ECHOCARDIOGRAPHY REPORT ---
DATE OF SERVICE: 09/27/2016 PROCEDURE: 2-D echo. MEASUREMENT: LVID end diastolic 5.7, IVS thickness 1.1, LVPW thickness 1.0, left atrial diameter 3.9, ejection fraction 10%. FINDINGS: 1. Technical quality is good. 2. The left ventricle is dilated. Akinesia of the mid to apical anterior wall, anterior septum through apex systolic function is reduced. Estimated ejection fraction 10%. 3. The left atrium is prominent. No clot or thrombus was seen. 4. The right atrium and right ventricle are normal in size, pacemaker leads were seen in the right heart chambers. 5. Mitral valve evaluation showed moderate mitral regurgitation. No mitral valve prolapse. No mitral valve stenosis. 6. Aortic valve leaflets were not well visualized. There is no significant aortic valve stenosis or regurgitation seen. 7. Tricuspid valve is normal in morphology with mild tricuspid regurgitation noted by color Doppler flow. Doppler across tricuspid valve estimated pulmonary artery pressure of 39 plus right atrial pressure. 8. Pulmonic valve is functioning normally. 9. No pericardial effusion. CONCLUSION: 1. Dilated left ventricle with diffuse left ventricular hypokinesia, akinesis of the mid to apical anterior wall, anteroseptum, true sputum, true apex. Systolic function is reduced. Estimated ejection fraction 10%. 2. Left atrial dilatation. 3. Moderate mitral regurgitation, mild tricuspid regurgitation. 4. Estimated pulmonary artery pressure of 45 mmHg. Job ID: [id number] DocumentID: [id number] Dictated Date: 09/27/2016 10:39:56 Audit Manager Date: 09/27/2016 10:55:07 Dictated By: NIC LOVE MD
[2016-09-28 03:24] VITALS: BP 134/80
[2016-09-28] MEDS: NS IV 1000 ML 1,000 ML IV SCH ×2 (03:50→14:10)
[2016-09-28] MEDS ORDERED: HALOPERIDOL 5 MG/ML (HALDOL) AMP IM ONE (04:45)
[2016-09-28 04:52] LABS: BASOPHILS # (AUTO) 0.2 10^3/uL (0.0-0.1); BASOPHILS % (AUTO) 1 % (0-10); EOSINOPHILS # (AUTO) 0.4 10^3/uL (0.0-0.3); EOSINOPHILS % (AUTO) 2 % (0-10); LYMPHOCYTES # (AUTO) 2.4 X 10^3 (1.0-4.0); LYMPHOCYTES % (AUTO) 13 % (12-44); MEAN CORPUSCULAR HEMOGLOBIN 26 PG (25-34); MEAN CORPUSCULAR HGB CONC 33 G/DL (32-36); MEAN CORPUSCULAR VOLUME 79 FL (80-99); MEAN PLATELET VOLUME 10.2 FL (7.4-10.4); MONOCYTES # (AUTO) 1.4 X 10^3 (0.0-1.0); MONOCYTES % (AUTO) 8 % (0-12); NEUTROPHILS # (AUTO) 14.4 X 10^3 (1.8-7.8); NEUTROPHILS % (AUTO) 77 % (42-75); RED BLOOD COUNT 5.03 10^6/uL (4.35-5.85); RED CELL DISTRIBUTION WIDTH 17.3 % (10.0-14.5); WHITE BLOOD COUNT 18.8 10^3/uL (4.3-11.0)
[2016-09-28 04:54] LABS: PLATELET COUNT 1316 10^3/uL (130-400)
[2016-09-28 05:03] LABS: INR 1.3 (0.8-1.4); PROTHROMBIN TIME PATIENT 15.9 SEC (12.2-14.7)
[2016-09-28 05:12] LABS: ANION GAP 11 MMOL/L (5-14); BLOOD UREA NITROGEN 19 MG/DL (7-18); BUN/CREATININE RATIO 21; CALCIUM 9.3 MG/DL (8.5-10.1); CARBON DIOXIDE 18 MMOL/L (21-32); CHLORIDE 111 MMOL/L (98-107); CREATININE SERUM 0.92 MG/DL (0.60-1.30); GFR ESTIMATED > 60; GLUCOSE 115 MG/DL (70-105); MAGNESIUM 1.9 MG/DL (1.8-2.4); PHOSPHORUS 2.6 MG/DL (2.3-4.7); SODIUM 140 MMOL/L (135-145)
[2016-09-28 05:22] LABS: BAND NEUTROPHILS 1 %; EOSINOPHILS % (MANUAL) 2 %; LYMPHOCYTES % (MANUAL) 7 %; NEUTROPHILS % (MANUAL) 77 %; REACTIVE LYMPHOCYTES 5 %; TROPONIN I < 0.30 NG/ML (<0.30)
[2016-09-28 07:24] VITALS: BP 138/88
[2016-09-28] MEDS ORDERED: CATHETER FLUSH 10 ML SYR IV PRN (07:45)
--- NOTE | 2016-09-28 08:35 | Cardiology Progress Note ---
Subjective Subjective/Events-last exam Patient is in bed, started to have chest pain and shortness of breath, no palpitation Review of Systems General: No Chills, No Night Sweats, No Fatigue, No Malaise, No Appetite, No Other HEENT: No Head Aches, No Visual Changes, No Eye Pain, No Ear Pain, No Dysphasia , No Sinus Congestion, No Post Nasal Drip, No Sore Throat, No Other Pulmonary: Dyspnea, No Cough, No Pleuritic Chest Pain, No Other Cardiovascular: Chest Pain, Edema, No: Lt Headedness, Orthopnea, Other, Palpitations, Paroxysmal Noc. Dyspnea Objective-Cardiology Exam Last Set of Vital Signs Vital Signs 09/28/16 07:24 Temp 96.9 Pulse 85 Resp 24 B/P (MAP) 138/88 Pulse Ox 93 O2 Delivery Room Air Capillary Refill : Less Than 3 Seconds I&O Intake and Output 09/28/16 00:00 Intake Total 1100 ml Output Total 2100 ml Balance -1000 ml Intake Oral 100 ml IV Total 1000 ml Output Urine Total 2100 ml # Bowel Movements 1 General: Alert, Oriented X3, Cooperative HEENT: Atraumatic, PERRLA Neck: Supple, No JVD, No Thyromegaly Lungs: Clear to Auscultation, Normal Air Movement Heart: Regular Rate, Normal S1, Normal S2, No Murmurs Abdomen: Normal Bowel Sounds, Soft, No Tenderness, No Hepatosplenomegaly, No Masses Extremities: No Clubbing, No Cyanosis, No Edema, Normal Pulses, No Tenderness/ Swelling Skin: No Rashes, No Breakdown, No Significant Lesion Neuro: Normal Gait, Normal Speech, Strength at 5/5 X4 Ext, Normal Tone, Sensation Intact Psych/Mental Status: Mental Status NL, Mood NL Results Lab Laboratory Tests 09/27/16 12:11 09/27/16 18:07 09/27/16 23:40 09/28/16 04:10 A/P-Cardiology Admission Diagnosis GI bleed Anemia Coronary artery disease Hypotension Assessment/Plan GI bleed, EGD done, gastritis, managed by primary care physician Chest pain, shortness of breath, BP is better, I will give him nitroglycerine and lasix and monitor response Coronary artery disease, history of CABG, currently clinically stable, abnormal EKG, I'll try to obtain copy of his records from [facility] Congestive heart failure, chronic left ventricular systolic dysfunction, ejection fraction 10 percent, unknown baseline but probably has underlying left ventricular systolic dysfunction and has history of ICD, I'll give him a dose of Lasix and evaluate response. Permanent pacemaker/ICD, interrogated yesterday, good sensing and capture activity, patient apparently having multiple episodes of nonsustained ventricular tachycardia, had one episode of sustained ventricular tachycardia that required pacing. Patient has been maintained on Xarelto, probably underlying atrial fibrillation , no episodes of atrial fibrillation noted, had episodes of atrial tachycardia on the pacemaker interrogation. Anemia, secondary to GI bleed, SAEZ 8 are more stable. Continue to monitor Hypotension, better at this time. Continue to monitor. Thrombocytosis, probably reactive to bleeding. Continue to monitor, Dr. Garcia is managing. Hyperlipidemia, currently nothing by mouth. Continue to monitor. Confusion, dementia, unknown duration, managed by primary care physician History of gallstones, appendectomy, prostatectomy Addendum, Echo reviewed EF 10%, PA 45 mmHg, cannot tolerate BB, ACEI, ARB due to hypotension, unknown baseline EF, I will try to obtain a copy of records, evaluate Trop Clinical Quality Measures DVT/VTE Risk/Contraindication: Risk Factor Score Per Nursin RFS Level Per Nursing on Admit: 4+=Very High NIC LOVE MD September 28, 2016 08:35
[2016-09-28] MEDS ORDERED: FUROSEMIDE 40 MG/4 ML INJ (LASIX) IVP NR (08:45)
[2016-09-28] MEDS ORDERED: NITROGLYCERIN SUBLINGUAL 0.4 MG TAB (NITROSTAT) SL PRN (08:45)
[2016-09-28] MEDS: PANTOPRAZOLE 40 MG/10 ML (PROTONIX) VIAL IV SCH ×2 (09:05→20:39)
[2016-09-28] MEDS ORDERED: NAPR220T66 PO (11:04)
[2016-09-28] MEDS ORDERED: CRV25T PO (11:04)
[2016-09-28 11:09] VITALS: BP 151/76
--- NOTE | 2016-09-28 13:15 | Progress Note ---
Subjective Subjective/Events-last exam Pt seen and examined, mildly confused today, but better when his and brother walked in. Pt has not had any more hypotensive episodes and no tarry stools, was transferred out of ICU and down to 4th floor. Pt denies any abdominal pain. Review of Systems General: No Chills, No Night Sweats Pulmonary: No Dyspnea, No Cough Cardiovascular: No: Chest Pain Gastrointestinal: No: Abdominal Pain, Nausea, Vomiting Objective Exam Vital Signs Date Time Temp Pulse Resp B/P (MAP) Pulse Ox O2 Delivery O2 Flow Rate FiO2 09/28/16 11:09 96.5 91 20 151/76 90 Room Air 09/28/16 07:24 96.9 85 24 138/88 93 Room Air 09/28/16 07:00 108 09/28/16 03:24 97.7 89 16 134/80 97 Room Air 09/28/16 01:00 89 09/27/16 23:08 96.8 88 16 148/78 94 Room Air 09/27/16 20:25 97.2 77 18 120/62 92 Room Air 09/27/16 19:00 82 09/27/16 15:35 96.0 95 18 129/71 97 Room Air I & O 09/28/16 07:00 Intake Total 2000 ml Output Total 1600 ml Balance 400 ml Capillary Refill : Less Than 3 Seconds General Appearance: No Apparent Distress, WD/WN HEENT: PERRL/EOMI, Pharynx Normal Neck: Non Tender, Supple Respiratory: Lungs Clear, No Accessory Muscle Use, No Respiratory Distress Cardiovascular: No Edema, No JVD, No Murmur, Other (pacemaker cardiac device) Peripheral Pulses: 4+ Carotid (R), 4+ Carotid (L), 4+ Radial Pulses (R), 4+ Radial Pulses (L) Gastrointestinal: non tender, soft, no organomegaly, no pulsatile mass, other ( pt has multiple scars from previous surgery) Extremity: Non Tender Neurologic/Psychiatric: Alert, Oriented x3 Skin: Normal Color, Warm/Dry Lymphatic: No Adenopathy Results Lab Laboratory Tests 09/27/16 18:07: Hemoglobin 11.9L, Hematocrit 36L 09/27/16 23:40: Hemoglobin 11.8L, Hematocrit 36L 09/28/16 04:10: Hemoglobin 13.2L, Hematocrit 40, White Blood Count 18.8H, Red Blood Count 5.03, Mean Corpuscular Volume 79L, Mean Corpuscular Hemoglobin 26, Mean Corpuscular Hemoglobin Concent 33, Red Cell Distribution Width 17.3H, Platelet Count 1316*H , Mean Platelet Volume 10.2, Neutrophils (%) (Auto) 77H, Lymphocytes (%) (Auto) 13, Monocytes (%) (Auto) 8, Eosinophils (%) (Auto) 2, Basophils (%) (Auto) 1, Neutrophils # (Auto) 14.4H, Lymphocytes # (Auto) 2.4, Monocytes # (Auto) 1.4H, Eosinophils # (Auto) 0.4H, Basophils # (Auto) 0.2H, Neutrophils % (Manual) 77, Lymphocytes % (Manual) 7, Monocytes % (Manual) 8, Eosinophils % (Manual) 2, Band Neutrophils 1, Reactive Lymphocytes 5, Blood Morphology Comment NORMAL, Prothrombin Time 15.9H, INR Comment 1.3, Sodium Level 140, Potassium Level 4.0, Chloride Level 111H, Carbon Dioxide Level 18L, Anion Gap 11, Blood Urea Nitrogen 19H, Creatinine 0.92, Estimat Glomerular Filtration Rate > 60, BUN/ Creatinine Ratio 21, Glucose Level 115H, Calcium Level 9.3, Phosphorus Level 2.6 , Magnesium Level 1.9, Troponin I < 0.30, B-Type Natriuretic Peptide 932.5H 09/28/16 08:49: Troponin I < 0.30 09/28/16 12:00: Hemoglobin 13.8, Hematocrit 42 Assessment/Plan Assessment/Plan Assessment/Plan 1. GI bleed - unknown etiology. S/P EGD mild gastritis seen in antrum, no other signs of bleeding. Will need colonoscopy, can do as an outpt. Will sign off and would be happy to see pt. in my clinic or he can follow up for colonoscopy up in [place]. 2. CAD, A fib - defibrillator implanted- working per Cardiology 3. Anemia - s/p transfusion, will monitor 4. Thrombocytosis - Hematology consulted. 5. HTN- continue meds, but hold if SBP drops below 100 Clinical Quality Measures DVT/VTE Risk/Contraindication: Risk Factor Score Per Nursin RFS Level Per Nursing on Admit: 4+=Very High SAUL LISA DO September 28, 2016 13:14
--- NOTE | 2016-09-28 13:58 | Oncology Progress Note ---
Subjective Subjective/Events-last exam Pt had EGD yesterday and only showed mild gastritis. No source of bleeding identified. Plt is higher to 1323K today. Hb is up to 13 today, WBC 18 His CXR yesterday showed bilateral infiltrates He is more SOB today. Data Review Labs Laboratory Tests 09/27/16 18:07 09/27/16 23:40 09/28/16 04:10 09/28/16 12:00 Laboratory Tests 09/26/16 15:47: White Blood Count 12.6H, Hemoglobin 11.7L, Hematocrit 36L, Red Cell Distribution Width 16.1H, Platelet Count 1059*H, Neutrophils (%) (Auto) 77H, Neutrophils # (Auto) 9.7H, Prothrombin Time 18.0H, INR Comment 1.5H, Chloride Level 112H, Blood Urea Nitrogen 38H, Glucose Level 108H, Calcium Level 8.3L, Total Bilirubin 1.3H, Total Protein 5.5L, Albumin 3.1L 09/26/16 23:39: Hemoglobin 11.6L, Hematocrit 35L 09/27/16 06:00: Hemoglobin 11.8L, Hematocrit 36L, Red Cell Distribution Width 16.3H, Platelet Count 1049*H, Neutrophils # (Auto) 8.0H, Chloride Level 113H, Blood Urea Nitrogen 26H, Glucose Level 108H, Calcium Level 8.4L, Basophils # (Auto) 0.2H, Carbon Dioxide Level 20L 09/27/16 12:11: Hemoglobin 12.0L, Hematocrit 37L 09/27/16 18:07: Hemoglobin 11.9L, Hematocrit 36L 09/27/16 23:40: Hemoglobin 11.8L, Hematocrit 36L 09/28/16 04:10: Hemoglobin 13.2L, White Blood Count 18.8H, Mean Corpuscular Volume 79L, Red Cell Distribution Width 17.3H, Platelet Count 1316*H, Neutrophils (%) (Auto) 77H , Neutrophils # (Auto) 14.4H, Monocytes # (Auto) 1.4H, Eosinophils # (Auto) 0.4H , Basophils # (Auto) 0.2H, Prothrombin Time 15.9H, Chloride Level 111H, Carbon Dioxide Level 18L, Blood Urea Nitrogen 19H, Glucose Level 115H, B-Type Natriuretic Peptide 932.5H 09/28/16 08:49: 09/28/16 12:00: Physical Exam Vital Signs Vital Sign - Last 12Hours 09/26/16 14:35 Temp 96.8 Pulse 77 Resp 15 B/P (MAP) 120/67 Pulse Ox 98 O2 Delivery Room Air Capillary Refill : Less Than 3 Seconds HEENT: PERRL/EOMI Respiratory: Crackles Cardiovascular: Regular Rate, Rhythm Gastrointestinal: Non Tender, Soft Extremity: Swelling Impression & Plan Impression & Plan IMP: 1. Acute GI bleeding with black tarry stool, hypotension and syncope episodes. EGD did not identify the source of bleeding after pt was on Protonix for one day. 2. Thrombocytosis, Plt over a million. Most likely reactive but can not completely rule out polycythemia vera (PV) or essential thrombocytosis (ET) 3. Anemia Hb up from 11 to 13 today without transfusion. He did have one unit RBC at local hospital 09/26/16. 4. Mildly elevated leukocytosis, most likely reactive. Now resolved. 5. CAD, ? h/o AFib, s/p GABG was on Xarelto prior to this admission 6. Bilateral infiltrates and acute leukocytosis suggesting pneumonia. Leucocytosis is most likely reactive to infection. Blood smear morphology was unremarkable. Plan: 1. Pt needs to have antibiotic treatment. I started him on Cefepime and Levaquin today 2. Low dose ASA 81mg po daily. 3. Hold off Xarelto for now. Once Hb is normal and stable, we can consider restart it if it is still necessary per Patents Examiner. 4. Continue Protonix for 1-2 more month. 5. f/u with Dr. Romero for colonoscopy. 6. Follow up ALAINA-2 mutation result. If +, then highly suggestive of PV or ET, I will arrange bone marrow aspiration and biopsy as out-pt procedure. Clinical Quality Measures DVT/VTE Risk/Contraindication: Risk Factor Score Per Nursin RFS Level Per Nursing on Admit: 4+=Very High ALLI PRATT MD September 28, 2016 13:58
--- NOTE | 2016-09-28 14:27 | Progress Note-Hospitalist ---
Standard Progress Note Progress Notes/Assess & Plan Date Seen 09/28/16 Diagnosis upper gi bleed Assess & Plan/Chief Complaint The patient's an 86-year-old white male who was transferred here from [place]. He had apparently been having black stools. He is confused and the duration of this complaint is not clear. He takes Pradaxa. His hemoglobin has seemed to stabilize at the 11 range since admission. He states that he has not had a black stools since being here, there is no documentation that he had a stool since being here. The patient was discussed with Dr. oRmero who is on surgery call and consultation. Physical exam: He is pleasant but forceful. It is his wish to leave now. His is concerned about the various uncertainties. Lungs are clear to auscultation. CV is regular. Abdomen is soft to palpation. Ankles show 2+ pulses and no edema. Impression: GI bleeding stable at this moment. 2.dementia. 3.oral anticoagulant use. 4.thrombocytosis. Plan: Discussed the possibility of a colonoscopy with Dr. Romero. He allows that this can be done as an outpatient and that there are certain risks to be considered. This is to say oral anticoagulants, thrombocytosis and possible clotting diathesis, ejection fraction of 10 percent which would make him a very high risk patient if indeed there were a malignancy as the cause of bleeding. Accordingly we will repeat CBC in the morning and if stable proceed to discharge. Labs Laboratory Tests 09/26/16 15:47 09/26/16 23:39 09/27/16 06:00 09/27/16 12:11 09/27/16 18:07 09/27/16 23:40 09/28/16 04:10 09/28/16 12:00 MASSIMO HERNANDEZ MD September 28, 2016 14:27
[2016-09-28 15:10] VITALS: BP 125/72
[2016-09-28] MEDS: LEVOFLOXACIN 750 MG/150 ML IV 150 ML IV SCH (16:36)
[2016-09-28 20:02] VITALS: BP 116/67
[2016-09-28] MEDS: CEFEPIME INJECTION 2,000 MG in NS (IVPB) 50 ML IV SCH (20:38)
[2016-09-28] MEDS: LORazepam INJ 2 MG/ML (ATIVAN) VIAL IVP PRN (20:39)
[2016-09-28 23:43] VITALS: BP 119/71
[2016-09-29 03:43] VITALS: BP 145/90
[2016-09-29 06:04] LABS: BASOPHILS # (AUTO) 0.1 10^3/uL (0.0-0.1); BASOPHILS % (AUTO) 0 % (0-10); EOSINOPHILS # (AUTO) 0.1 10^3/uL (0.0-0.3); EOSINOPHILS % (AUTO) 1 % (0-10); LYMPHOCYTES # (AUTO) 1.8 X 10^3 (1.0-4.0); LYMPHOCYTES % (AUTO) 14 % (12-44); MEAN CORPUSCULAR HEMOGLOBIN 26 PG (25-34); MEAN CORPUSCULAR HGB CONC 33 G/DL (32-36); MEAN CORPUSCULAR VOLUME 79 FL (80-99); MEAN PLATELET VOLUME 10.3 FL (7.4-10.4); MONOCYTES # (AUTO) 1.3 X 10^3 (0.0-1.0); MONOCYTES % (AUTO) 10 % (0-12); NEUTROPHILS # (AUTO) 10.2 X 10^3 (1.8-7.8); NEUTROPHILS % (AUTO) 76 % (42-75); PLATELET COUNT 856 10^3/uL (130-400); RED BLOOD COUNT 4.71 10^6/uL (4.35-5.85); RED CELL DISTRIBUTION WIDTH 17.4 % (10.0-14.5); WHITE BLOOD COUNT 13.5 10^3/uL (4.3-11.0)
[2016-09-29 06:23] LABS: ALANINE AMINOTRANSFERASE 28 U/L (0-55); ALBUMIN 3.6 G/DL (3.2-4.5); ANION GAP 11 MMOL/L (5-14); ASPARTATE AMINO TRANSFERASE 47 U/L (5-34); BILIRUBIN,TOTAL 1.2 MG/DL (0.1-1.0); BLOOD UREA NITROGEN 23 MG/DL (7-18); BUN/CREATININE RATIO 22; CALCIUM 8.8 MG/DL (8.5-10.1); CARBON DIOXIDE 18 MMOL/L (21-32); CHLORIDE 109 MMOL/L (98-107); CREATININE SERUM 1.06 MG/DL (0.60-1.30); GFR ESTIMATED > 60; GLUCOSE 117 MG/DL (70-105); MAGNESIUM 1.6 MG/DL (1.8-2.4); PHOSPHORUS 2.6 MG/DL (2.3-4.7); POTASSIUM 3.4 MMOL/L (3.6-5.0); SODIUM 138 MMOL/L (135-145); TOTAL PROTEIN 6.3 G/DL (6.4-8.2)
[2016-09-29 06:39] LABS: TROPONIN I 4.79 NG/ML (<0.30)
--- NOTE | 2016-09-29 07:28 | Cardiology Progress Note ---
Subjective Subjective/Events-last exam Patient is sitting in a chair, feeling better today, he denied any chest pain or shortness of breath. Yesterday had an episode of chest pain responded to nitroglycerin, noted to have elevated troponin level today. Review of Systems General: No Chills, No Night Sweats, No Fatigue, No Malaise, No Appetite, No Other HEENT: No Head Aches, No Visual Changes, No Eye Pain, No Ear Pain, No Dysphasia , No Sinus Congestion, No Post Nasal Drip, No Sore Throat, No Other Pulmonary: No Dyspnea, No Cough, No Pleuritic Chest Pain, No Other Cardiovascular: No: Chest Pain, Edema, Lt Headedness, Orthopnea, Other, Palpitations, Paroxysmal Noc. Dyspnea Objective-Cardiology Exam Last Set of Vital Signs Vital Signs 09/29/16 03:43 Temp 98.4 Pulse 100 Resp 30 B/P (MAP) 145/90 Pulse Ox 94 O2 Delivery Room Air Capillary Refill : Less Than 3 Seconds I&O Intake and Output 09/29/16 00:00 Intake Total 1620 ml Output Total 1950 ml Balance -330 ml Intake Oral 570 ml IV Total 1050 ml Output Urine Total 1950 ml General: Alert, Oriented X3, Cooperative HEENT: Atraumatic, PERRLA Neck: Supple, No JVD, No Thyromegaly Lungs: Clear to Auscultation, Normal Air Movement Heart: Regular Rate, Normal S1, Normal S2, No Murmurs Abdomen: Normal Bowel Sounds, Soft, No Tenderness, No Hepatosplenomegaly, No Masses Extremities: No Clubbing, No Cyanosis, No Edema, Normal Pulses, No Tenderness/ Swelling Skin: No Rashes, No Breakdown, No Significant Lesion Neuro: Normal Gait, Normal Speech, Strength at 5/5 X4 Ext, Normal Tone, Sensation Intact Psych/Mental Status: Mental Status NL, Mood NL Results Lab Laboratory Tests 09/28/16 12:00 09/28/16 18:03 09/29/16 05:36 A/P-Cardiology Admission Diagnosis GI bleed Anemia Coronary artery disease Hypotension Assessment/Plan GI bleed, EGD done, gastritis, no source of active bleeding, H&H has been stable. Followed by primary care physician. Elevated troponin level, non-ST elevation myocardial infarction, had an episode of chest pain and shortness of breath yesterday, EKG has baseline IVCD which did not change, I will discuss with the patient and his family regarding the possibility of cardiac catheterization especially with his severe cardiomyopathy. Coronary artery disease, history of CABG, did not receive any record from [facility]. Congestive heart failure, chronic left ventricular systolic dysfunction, ejection fraction 10 percent, unknown baseline but probably has underlying left ventricular systolic dysfunction and has history of ICD, better after receiving Lasix yesterday Permanent pacemaker/ICD, interrogated yesterday, good sensing and capture activity, patient apparently having multiple episodes of nonsustained ventricular tachycardia, had one episode of sustained ventricular tachycardia that required pacing. Patient has been maintained on Xarelto, probably underlying atrial fibrillation , no episodes of atrial fibrillation noted, had episodes of atrial tachycardia on the pacemaker interrogation. Anemia, secondary to GI bleed, H&H are stable, continue to monitor Hypotension, better at this time. Continue to monitor. Thrombocytosis, probably reactive to bleeding. Continue to monitor, Dr. Garcia is managing. Hyperlipidemia, currently nothing by mouth. Continue to monitor. Confusion, dementia, unknown duration, managed by primary care physician History of gallstones, appendectomy, prostatectomy Addendum, Echo reviewed EF 10%, PA 45 mmHg, cannot tolerate BB, ACEI, ARB due to hypotension, unknown baseline EF, I will try to obtain a copy of records, evaluate Trop Clinical Quality Measures DVT/VTE Risk/Contraindication: Risk Factor Score Per Nursin RFS Level Per Nursing on Admit: 4+=Very High NIC LOVE MD September 29, 2016 07:28
[2016-09-29 07:59] VITALS: BP 139/83
[2016-09-29] MEDS: CEFEPIME INJECTION 2,000 MG in NS (IVPB) 50 ML IV SCH (09:30)
[2016-09-29] MEDS: ASPIRIN 81 MG CHEW (CHILDREN'S ASA) PO SCH (09:30)
[2016-09-29] MEDS: PANTOPRAZOLE 40 MG/10 ML (PROTONIX) VIAL IV SCH ×2 (09:30→20:43)
[2016-09-29] MEDS: LEVOFLOXACIN 750 MG/150 ML IV 150 ML IV SCH (10:07)
[2016-09-29 12:00] VITALS: BP 115/75
--- NOTE | 2016-09-29 13:40 | Progress Note-Hospitalist ---
Standard Progress Note Progress Notes/Assess & Plan Date Seen 09/29/16 Diagnosis upper gi bleed Assess & Plan/Chief Complaint Discharge planning has been now somewhat arduous. He was evaluated for senior behavioral health unit at [place]. He did not qualify. He had an episode of chest pain. This was relieved by nitroglycerin. Cardiac and lies or was employed and at 0536 this morning his troponin was elevated at 4.79. Troponin number 2 at 1140 was 6.47. He has had previous infarctions and it is known that his ejection fraction was recently tested and rated at 10 percent. There would appear to be more risk than benefit with regard to possibility of intervention. His BNP has also climbed from [id number]. Physical exam: He is up and ambulating. He is quite confused. Lungs are clear to auscultation. CV is regular. Impression: GI bleed now stable. 2.arteriosclerotic heart disease with previous MIs and ischemic cardio myopathy. 3.senile dementia. Plan: Continue to explore discharge options. Target for discharge is tomorrow. Labs Laboratory Tests 09/27/16 18:07 09/27/16 23:40 09/28/16 04:10 09/28/16 12:00 09/28/16 18:03 09/29/16 05:36 MASSIMO HERNANDEZ MD September 29, 2016 13:40
--- NOTE | 2016-09-29 15:27 | Oncology Progress Note ---
Subjective Subjective/Events-last exam Pt is up to chair. NO more chest pain Doing better than yesterday. Day 2 antibiotics Possible cardiac cath tomorrow Awaiting for discharge plan. Data Review Labs Laboratory Tests 09/28/16 18:03 09/29/16 05:36 Laboratory Tests 09/26/16 15:47: White Blood Count 12.6H, Hemoglobin 11.7L, Hematocrit 36L, Red Cell Distribution Width 16.1H, Platelet Count 1059*H, Neutrophils (%) (Auto) 77H, Neutrophils # (Auto) 9.7H, Prothrombin Time 18.0H, INR Comment 1.5H, Chloride Level 112H, Blood Urea Nitrogen 38H, Glucose Level 108H, Calcium Level 8.3L, Total Bilirubin 1.3H, Total Protein 5.5L, Albumin 3.1L 09/26/16 23:39: Hemoglobin 11.6L, Hematocrit 35L 09/27/16 06:00: Hemoglobin 11.8L, Hematocrit 36L, Red Cell Distribution Width 16.3H, Platelet Count 1049*H, Neutrophils # (Auto) 8.0H, Chloride Level 113H, Blood Urea Nitrogen 26H, Glucose Level 108H, Calcium Level 8.4L, Basophils # (Auto) 0.2H, Carbon Dioxide Level 20L 09/27/16 12:11: Hemoglobin 12.0L, Hematocrit 37L 09/27/16 18:07: Hemoglobin 11.9L, Hematocrit 36L 09/27/16 23:40: Hemoglobin 11.8L, Hematocrit 36L 09/28/16 04:10: Hemoglobin 13.2L, White Blood Count 18.8H, Mean Corpuscular Volume 79L, Red Cell Distribution Width 17.3H, Platelet Count 1316*H, Neutrophils (%) (Auto) 77H , Neutrophils # (Auto) 14.4H, Monocytes # (Auto) 1.4H, Eosinophils # (Auto) 0.4H , Basophils # (Auto) 0.2H, Prothrombin Time 15.9H, Chloride Level 111H, Carbon Dioxide Level 18L, Blood Urea Nitrogen 19H, Glucose Level 115H, B-Type Natriuretic Peptide 932.5H 09/28/16 08:49: 09/28/16 12:00: 09/28/16 18:03: Hemoglobin 12.3L, Hematocrit 37L 09/29/16 05:36: Hemoglobin 12.3L, Hematocrit 37L, White Blood Count 13.5H, Mean Corpuscular Volume 79L, Red Cell Distribution Width 17.4H, Platelet Count 856H, Neutrophils (%) (Auto) 76H, Neutrophils # (Auto) 10.2H, Monocytes # (Auto) 1.3H, Potassium Level 3.4L, Chloride Level 109H, Carbon Dioxide Level 18L, Blood Urea Nitrogen 23H, Glucose Level 117H, Magnesium Level 1.6L, Total Bilirubin 1.2H, Aspartate Amino Transf (AST/SGOT) 47H, Troponin I 4.79*H, B-Type Natriuretic Peptide 1046.1H, Total Protein 6.3L 09/29/16 11:40: Troponin I 6.47*H Physical Exam Vital Signs Vital Sign - Last 12Hours 09/26/16 14:35 Temp 96.8 Pulse 77 Resp 15 B/P (MAP) 120/67 Pulse Ox 98 O2 Delivery Room Air Capillary Refill : Less Than 3 Seconds General Appearance: No Apparent Distress Respiratory: No Accessory Muscle Use, No Respiratory Distress Impression & Plan Impression & Plan IMP: 1. Acute GI bleeding with black tarry stool, hypotension and syncope episodes. EGD did not identify the source of bleeding after pt was on Protonix for one day. 2. Thrombocytosis, Plt over a million. Most likely reactive but can not completely rule out polycythemia vera (PV) or essential thrombocytosis (ET). It is down to 800 range after IV antibiotics. This is encouraging. Await for ALAINA-2 result. 3. Anemia Hb up and stable without further transfusion. He did have one unit RBC at local hospital 09/26/16. 4. Leukocytosis, most likely related to pneumonia. Better today 18 to 13 after IV antibiotics. 5. CAD, ? h/o AFib, s/p GABG was on Xarelto prior to this admission. Possible cardiac cath tomorrow. 6. Bilateral infiltrates and acute leukocytosis suggesting pneumonia. Leucocytosis is most likely reactive to infection. Blood smear morphology was unremarkable. Plan: 1. Patient needs to have f/u with me at cancer center in 1 weeks if discharge. 2. Low dose ASA 81mg po daily. 3. Hold off Xarelto for now. Once Hb is normal and stable, we can consider restart it if it is still necessary per Nuclear Powerplant Mechanic Helper. 4. Continue Protonix for 1-2 more month. 5. f/u with Dr. Romero for colonoscopy. 6. Follow up ALAINA-2 mutation result. If +, then highly suggestive of PV or ET, I will arrange bone marrow aspiration and biopsy as out-pt procedure. Clinical Quality Measures DVT/VTE Risk/Contraindication: Risk Factor Score Per Nursin RFS Level Per Nursing on Admit: 4+=Very High ALLI PRATT MD September 29, 2016 15:27
[2016-09-29 16:15] VITALS: BP 115/65
[2016-09-29 19:59] VITALS: BP 114/67
[2016-09-29] MEDS: LORazepam INJ 2 MG/ML (ATIVAN) VIAL IVP PRN (22:23)
[2016-09-30] VITALS (14 sets, daily range): BP systolic 103–118; BP diastolic 59–78
[2016-09-30 04:36] LABS: BASOPHILS # (AUTO) 0.1 10^3/uL (0.0-0.1); BASOPHILS % (AUTO) 1 % (0-10); EOSINOPHILS # (AUTO) 0.1 10^3/uL (0.0-0.3); EOSINOPHILS % (AUTO) 1 % (0-10); LYMPHOCYTES # (AUTO) 1.6 X 10^3 (1.0-4.0); LYMPHOCYTES % (AUTO) 15 % (12-44); MEAN CORPUSCULAR HEMOGLOBIN 26 PG (25-34); MEAN CORPUSCULAR HGB CONC 33 G/DL (32-36); MEAN CORPUSCULAR VOLUME 79 FL (80-99); MEAN PLATELET VOLUME 10.4 FL (7.4-10.4); MONOCYTES % (AUTO) 10 % (0-12); NEUTROPHILS # (AUTO) 7.6 X 10^3 (1.8-7.8); NEUTROPHILS % (AUTO) 73 % (42-75); PLATELET COUNT 745 10^3/uL (130-400); RED BLOOD COUNT 4.36 10^6/uL (4.35-5.85); RED CELL DISTRIBUTION WIDTH 17.3 % (10.0-14.5); WHITE BLOOD COUNT 10.4 10^3/uL (4.3-11.0)
[2016-09-30] MEDS: PANTOPRAZOLE 40 MG/10 ML (PROTONIX) VIAL IV SCH ×2 (08:30→20:46)
[2016-09-30] MEDS: ASPIRIN 81 MG CHEW (CHILDREN'S ASA) PO SCH (09:47)
[2016-09-30] MEDS: LEVOFLOXACIN 500 MG TAB (LEVAQUIN) PO SCH (09:47)
--- NOTE | 2016-09-30 10:08 | Cardiology Progress Note ---
Subjective Subjective/Events-last exam Patient is sitting in chair, denies any active CP at this time. Review of Systems General: No Night Sweats, No Fatigue, No Malaise HEENT: No Visual Changes, No Dysphasia Pulmonary: Dyspnea, No Cough, No Pleuritic Chest Pain Cardiovascular: Chest Pain, No: Edema, Palpitations, Paroxysmal Noc. Dyspnea Gastrointestinal: No: Constipation, Diarrhea, Nausea, Vomiting Genitourinary: No Dysuria, No Frequency Musculoskeletal: No: back pain, foot pain, neck pain Neurological: No: Change in speech, Confusion, Numbness, Weakness Objective-Cardiology Exam Last Set of Vital Signs Vital Signs 09/30/16 08:00 Temp 96.8 Pulse 81 Resp 18 B/P (MAP) 109/65 Pulse Ox 94 O2 Delivery Room Air Capillary Refill : Less Than 3 Seconds I&O Intake and Output 09/30/16 00:00 Intake Total 2550 ml Output Total 250 ml Balance 2300 ml Intake Oral 1350 ml IV Total 1200 ml Output Urine Total 250 ml # Voids 6 # Bowel Movements 1 General: Alert, Oriented X3, Cooperative HEENT: Atraumatic, PERRLA Neck: Supple, No JVD, No Thyromegaly Lungs: Clear to Auscultation, Normal Air Movement Heart: Regular Rate, Normal S1, Normal S2, No Murmurs Abdomen: Normal Bowel Sounds, Soft, No Tenderness, No Hepatosplenomegaly, No Masses Extremities: No Clubbing, No Cyanosis, No Edema, Normal Pulses, No Tenderness/ Swelling Skin: No Rashes, No Breakdown, No Significant Lesion Neuro: Normal Gait, Normal Speech, Strength at 5/5 X4 Ext, Normal Tone, Sensation Intact Psych/Mental Status: Mental Status NL, Mood NL Results Lab Laboratory Tests 09/30/16 04:15 A/P-Cardiology Admission Diagnosis GI bleed Anemia Coronary artery disease Hypotension Assessment/Plan GI bleed, EGD done, gastritis, no source of active bleeding, H&H has been stable. Followed by primary care physician. Elevated troponin level, non-ST elevation myocardial infarction, had an episode of chest pain and shortness of breath yesterday, EKG has baseline IVCD which did not change,planning for cardiac catheterization later this afternoon. Coronary artery disease, history of CABG Congestive heart failure, chronic left ventricular systolic dysfunction, ejection fraction 10 percent, ischemic cardiomyopathy with baseline EF 10% per records received from [facility]. [facility] tolerat beta hollie, ALBERT-I or ARB due to hypotension. Permanent pacemaker/ICD, interrogated Wednesday, good sensing and capture activity , patient apparently having multiple episodes of nonsustained ventricular tachycardia, had one episode of sustained ventricular tachycardia that required pacing. Patient has been maintained on Xarelto, probably underlying atrial fibrillation , no episodes of atrial fibrillation noted, had episodes of atrial tachycardia on the pacemaker interrogation. Anemia, secondary to GI bleed, H&H are stable, continue to monitor Hypotension, better at this time. Continue to monitor. Thrombocytosis, probably reactive to bleeding. Continue to monitor, Dr. Garcia is managing. Hyperlipidemia, currently nothing by mouth. Continue to monitor. Confusion, dementia, unknown duration, managed by primary care physician History of gallstones, appendectomy, prostatectomy Clinical Quality Measures DVT/VTE Risk/Contraindication: Risk Factor Score Per Nursin RFS Level Per Nursing on Admit: 4+=Very High KEREN PCIHARDO September 30, 2016 10:08
[2016-09-30] MEDS ORDERED: LIDOCAINE 1% INJ 20 ML (XYLOCAINE) VIAL ONE (10:13)
[2016-09-30] MEDS ORDERED: HEParin (CATH LAB) 2,000 ML IV ONE (10:14)
[2016-09-30] MEDS ORDERED: NS IV 1000 ML 1,000 ML ONE (10:14)
[2016-09-30] MEDS ORDERED: LEVOFLOXACIN 750 MG TAB (LEVAQUIN) PO SCH (11:00)
[2016-09-30] MEDS ORDERED: LEVOFLOXACIN 500 MG TAB (LEVAQUIN) PO SCH (11:00)
--- NOTE | 2016-09-30 12:46 | Cardiology Progress Note ---
Subjective Subjective/Events-last exam patient is sitting in a chair, still confused, denied any chest pain or shortness of breath. No palpitation. Had an episode of chest pain or shortness of breath yesterday. Review of Systems General: No Chills, No Night Sweats, No Fatigue, No Malaise, No Appetite, No Other HEENT: No Head Aches, No Visual Changes, No Eye Pain, No Ear Pain, No Dysphasia , No Sinus Congestion, No Post Nasal Drip, No Sore Throat, No Other Pulmonary: No Dyspnea, No Cough, No Pleuritic Chest Pain, No Other Cardiovascular: No: Chest Pain, Edema, Lt Headedness, Orthopnea, Other, Palpitations, Paroxysmal Noc. Dyspnea Objective-Cardiology Exam Last Set of Vital Signs Vital Signs 09/30/16 12:15 Temp 94.8 Pulse 91 Resp 18 B/P (MAP) 115/59 Pulse Ox 94 O2 Delivery Room Air Capillary Refill : Less Than 3 Seconds I&O Intake and Output 09/29/16 23:59 Intake Total 2550 ml Output Total 250 ml Balance 2300 ml Intake Oral 1350 ml IV Total 1200 ml Output Urine Total 250 ml # Voids 6 # Bowel Movements 1 General: Alert, Oriented X3, Cooperative HEENT: Atraumatic, PERRLA Neck: Supple, No JVD, No Thyromegaly Lungs: Clear to Auscultation, Normal Air Movement Heart: Regular Rate, Normal S1, Normal S2, No Murmurs Abdomen: Normal Bowel Sounds, Soft, No Tenderness, No Hepatosplenomegaly, No Masses Extremities: No Clubbing, No Cyanosis, No Edema, Normal Pulses, No Tenderness/ Swelling Skin: No Rashes, No Breakdown, No Significant Lesion Neuro: Normal Gait, Normal Speech, Strength at 5/5 X4 Ext, Normal Tone, Sensation Intact Psych/Mental Status: Mental Status NL, Mood NL Results Lab Laboratory Tests 09/30/16 04:15 A/P-Cardiology Admission Diagnosis GI bleed Anemia Coronary artery disease Hypotension Assessment/Plan GI bleed, EGD done, gastritis, no source of active bleeding, H&H has been stable. Followed by primary care physician. Elevated troponin level, non-ST elevation myocardial infarction, had an episode of chest pain and shortness of breath yesterday, EKG has baseline IVCD which did not change,planning for cardiac catheterization today. Coronary artery disease, history of CABG Congestive heart failure, chronic left ventricular systolic dysfunction, ejection fraction 10 percent, ischemic cardiomyopathy with baseline EF 10% per records received from [facility]. [facility] tolerat beta hollie, ALBERT-I or ARB due to hypotension. Permanent pacemaker/ICD, interrogated Wednesday, good sensing and capture activity , patient apparently having multiple episodes of nonsustained ventricular tachycardia, had one episode of sustained ventricular tachycardia that required pacing. Patient has been maintained on Xarelto, probably underlying atrial fibrillation , no episodes of atrial fibrillation noted, had episodes of atrial tachycardia on the pacemaker interrogation. Anemia, secondary to GI bleed, H&H are stable, continue to monitor Hypotension, better at this time. Continue to monitor. Thrombocytosis, probably reactive to bleeding. Continue to monitor, Dr. Garcia is managing. Hyperlipidemia, currently nothing by mouth. Continue to monitor. Confusion, dementia, unknown duration, managed by primary care physician History of gallstones, appendectomy, prostatectomy Clinical Quality Measures DVT/VTE Risk/Contraindication: Risk Factor Score Per Nursin RFS Level Per Nursing on Admit: 4+=Very High NIC OLVE MD September 30, 2016 12:46
--- NOTE | 2016-09-30 12:46 | Cardiac Procedure Note-CS/ASA ---
Pre-Procedure Note Pre-Op Procedure Note H&P Reviewed The H&P was reviewed, patient examined and no changes noted. Date H&P Reviewed: September 30, 2016 Time H&P Reviewed: 12:46 Conscious Sedation Pre-Proced Time Reviewed: 12:46 ASA Class: 3 Airway Mallampati Classification: ([place] appropriate class) I. II. III, IV Lungs Heart ASA score ASA 1: a normal healthy patient ASA 2: a patient with a mild systemic disease (mid diabetes, controlled hypertension, obesity x ASA 3: a patient with a severe systemic disease that limits activity (angina , COPD, prior Myocardial infarction) ASA 4: a patient with an incapacitating disease that is a constant threat to life (CHF, renal failure) ASA 5: a moribund patient not expected to survive 24 hrs. (ruptured aneurysm) ASA 6: a declared brain patient whose organs are being harvested. For emergent operations, add the letter E after the classification Grade 3 Sedation Plan: Analgesia, Amnesia, Plan communicated to team members, Discussed options with patient/fam, Discussed risks with patient/fam Note The patient is an appropriate candidate to undergo the planned procedure, sedation, and anesthesia. The patient immediately re-assessed prior to indication. NIC LOVE MD September 30, 2016 12:46
[2016-09-30] MEDS ORDERED: fentaNYL INJECTION 100 MCG/2 ML AMP ONE (13:35)
[2016-09-30] MEDS ORDERED: MIDAZOLAM 5 MG/5 ML (VERSED) VIAL ONE (13:35)
[2016-09-30] MEDS ORDERED: NS IV 1000 ML 1,000 ML IV SCH (14:00)
[2016-09-30] MEDS ORDERED: PATIENT MAY USE OWN MEDS, ALL PO SCH (14:45)
--- NOTE | 2016-09-30 15:52 | Oncology Progress Note ---
Subjective Subjective/Events-last exam Pt had cardiac cath today. Now in sleep Data Review Labs Laboratory Tests 09/30/16 04:15 Laboratory Tests 09/27/16 18:07: Hemoglobin 11.9L, Hematocrit 36L 09/27/16 23:40: Hemoglobin 11.8L, Hematocrit 36L 09/28/16 04:10: Hemoglobin 13.2L, White Blood Count 18.8H, Mean Corpuscular Volume 79L, Red Cell Distribution Width 17.3H, Platelet Count 1316*H, Neutrophils (%) (Auto) 77H , Neutrophils # (Auto) 14.4H, Monocytes # (Auto) 1.4H, Eosinophils # (Auto) 0.4H , Basophils # (Auto) 0.2H, Prothrombin Time 15.9H, Chloride Level 111H, Carbon Dioxide Level 18L, Blood Urea Nitrogen 19H, Glucose Level 115H, B-Type Natriuretic Peptide 932.5H 09/28/16 08:49: 09/28/16 12:00: 09/28/16 18:03: Hemoglobin 12.3L, Hematocrit 37L 09/29/16 05:36: Hemoglobin 12.3L, Hematocrit 37L, White Blood Count 13.5H, Mean Corpuscular Volume 79L, Red Cell Distribution Width 17.4H, Platelet Count 856H, Neutrophils (%) (Auto) 76H, Neutrophils # (Auto) 10.2H, Monocytes # (Auto) 1.3H, Potassium Level 3.4L, Chloride Level 109H, Carbon Dioxide Level 18L, Blood Urea Nitrogen 23H, Glucose Level 117H, Magnesium Level 1.6L, Total Bilirubin 1.2H, Aspartate Amino Transf (AST/SGOT) 47H, Troponin I 4.79*H, B-Type Natriuretic Peptide 1046.1H, Total Protein 6.3L 09/29/16 11:40: Troponin I 6.47*H 09/30/16 04:15: Hemoglobin 11.4L, Hematocrit 34L, Mean Corpuscular Volume 79L, Red Cell Distribution Width 17.3H, Platelet Count 745H Physical Exam Vital Signs Vital Sign - Last 12Hours 09/26/16 14:35 Temp 96.8 Pulse 77 Resp 15 B/P (MAP) 120/67 Pulse Ox 98 O2 Delivery Room Air Capillary Refill : Less Than 3 Seconds General Appearance: No Apparent Distress Impression & Plan Impression & Plan IMP: 1. Acute GI bleeding with black tarry stool, hypotension and syncope episodes. EGD did not identify the source of bleeding after pt was on Protonix for one day. 2. Thrombocytosis, Plt over a million. Most likely reactive but can not completely rule out polycythemia vera (PV) or essential thrombocytosis (ET). It is down to 800 range after IV antibiotics and 700 range today. This is encouraging. Await for ALAINA-2 result. 3. Anemia Hb 11.4 today, drop from 13 yesterday. He did have one unit RBC at [facility] 09/26/16. 4. Leukocytosis, most likely related to pneumonia. Resolved after IV and PO antibiotics. 5. CAD, ? h/o AFib, s/p GABG was on Xarelto prior to this admission. Xarelto stopped since this admission. 6. Bilateral infiltrates and acute leukocytosis suggesting pneumonia. Leucocytosis is most likely reactive to infection. Resolved after antibiotics. Blood smear morphology was unremarkable. Plan: 1. Patient needs to have f/u with me at cancer center in 1 weeks if discharge. 2. Low dose ASA 81mg po daily. 3. Stop Xarelto for now. 4. Continue Protonix for 1-2 more month. 5. f/u with Dr. Romero for colonoscopy. 6. Follow up ALAINA-2 mutation result. If +, then highly suggestive of PV or ET, I will arrange bone marrow aspiration and biopsy as out-pt procedure. 7. Continue Levaquin for total of 7-10 days. Clinical Quality Measures DVT/VTE Risk/Contraindication: Risk Factor Score Per Nursin RFS Level Per Nursing on Admit: 4+=Very High ALLI PRATT MD September 30, 2016 15:52
[2016-09-30] MEDS: NS IV 1000 ML 1,000 ML IV SCH (16:41)
[2016-10-01] VITALS: BP 117/59
[2016-10-01] MEDS: NS IV 1000 ML 1,000 ML IV SCH ×2 (03:15→12:24)
[2016-10-01 04:46] LABS: MEAN PLATELET VOLUME 10.6 FL (7.4-10.4); RED BLOOD COUNT 4.31 10^6/uL (4.35-5.85); RED CELL DISTRIBUTION WIDTH 17.3 % (10.0-14.5); WHITE BLOOD COUNT 9.4 10^3/uL (4.3-11.0)
[2016-10-01 05:08] LABS: ANION GAP 10 MMOL/L (5-14); BLOOD UREA NITROGEN 17 MG/DL (7-18); BUN/CREATININE RATIO 20; CALCIUM 8.4 MG/DL (8.5-10.1); CARBON DIOXIDE 19 MMOL/L (21-32); CHLORIDE 111 MMOL/L (98-107); CREATININE SERUM 0.85 MG/DL (0.60-1.30); GFR ESTIMATED > 60; GLUCOSE 96 MG/DL (70-105); POTASSIUM 3.7 MMOL/L (3.6-5.0); SODIUM 140 MMOL/L (135-145)
[2016-10-01 08:00] VITALS: BP 110/65
[2016-10-01] MEDS: ASPIRIN 81 MG CHEW (CHILDREN'S ASA) PO SCH (08:31)
[2016-10-01] MEDS: PANTOPRAZOLE 40 MG/10 ML (PROTONIX) VIAL IV SCH (08:31)
--- NOTE | 2016-10-01 11:14 | CARDIAC CATHETERIZATION ---
DATE OF SERVICE: 09/30/2016 CARDIAC CATHETERIZATION REFERRING PHYSICIAN; Erica Olson DO BRIEF HISTORY: The patient is an 86-year-old gentleman with history of coronary artery disease, CABG x2, and severe cardiomyopathy with ICD. The patient reported to have history of multiple episodes of V-tach, had severe cardiomyopathy, started having chest pain while he was in the hospital and had elevated troponin. He was scheduled and he was brought for cardiac catheterization. PROCEDURE NOTE: After explaining the procedure to the patient, all pros and cons were explained, all questions were answered. The patient signed consent, then he was placed on the cardiac catheterization laboratory. Right groin was prepped in a sterile fashion, local anesthesia applied to the right groin. A 6 Swedish sheath was placed in the right femoral artery. A combination of right and left Dorinda catheters were used to access the right and left coronary system. The Dorinda right catheter was used to access the vein graft and the internal mammary artery angiogram was done. Pigtail catheter advanced to the left ventricular cavity. Left ventricular pressure was measured. No left ventriculogram was done. The patient is known to have severe cardiomyopathy. Pullback LV to aorta was done. At the end of the procedure, sheath was removed. Mynx device deployed. Hemostasis achieved. Total contrast used is 52 mL, total radiation dose is 450 mGy. ANATOMY: 1. Left main coronary artery had moderate disease. 2. Left anterior descending artery is totally occluded. The AHMADI to the LAD is patent with slow flow in the LAD. 3. Left circumflex artery is a small artery with moderate disease. 4. The right coronary artery is totally occluded proximally. The vein graft to the right coronary artery is patent with diffuse ectasia, 50% stenosis proximally, slow flow throughout the system due to small-vessel disease. 5. AHMADI angiogram: The AHMADI to the LAD is patent with slow flow in the LAD system. 6. Vein graft angiogram: The vein graft to the right coronary artery is patent as described above. IN CONCLUSION: 1. Patient left internal mammary artery to the left anterior descending and patent vein graft to the right coronary artery. The vein graft has 60% stenosis proximally, diffuse ectasia with slow flow distally, slow flow in the left internal mammary artery due to small vessel disease. 2. Moderate left main coronary artery stenosis. 3. Elevated left ventricular end-diastolic pressure of 21. DISCUSSION AND RECOMMENDATION: Medical therapy is recommended. No intervention is warranted. Job ID: [id number] DocumentID: [id number] Dictated Date: 09/30/2016 14:44:31 Ground Operations Superintendent Date: 10/01/2016 07:45:37 Dictated By: NIC LOVE MD
--- NOTE | 2016-10-01 11:27 | Discharge Summary-Hospitalist ---
Diagnosis/Chief Complaint Date of Admission Sep 26, 2016 at 14:41 Date of Discharge Discharge Date: October 01, 2016 Admission Diagnosis upper gi bleed Discharge Diagnosis Impression: GI bleed now stable. 2.arteriosclerotic heart disease with previous MIs and ischemic cardio myopathy. 3.senile dementia. 4. Pneumonia Reason Hospital Visit/Course 86yoCM with PMH of CAD s/p CABG and AICD placement on Xarelto presented to OSH with CC of syncope and melena x2-3 days. He reports he fell and was very weak this morning and was unable to get up. He immediately called EMS which brought him to [facility] ER. He was found to have black tarry stools, an acute drop in his baseline hgb from 16->11 and to be profoundly thrombocytopenic at 12k. His SBP was 60. He was given 1L NS and 1u pRBCs and transferred here. 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 Pt cannot recall the name of his PCP. Physical exam stable. Pt is having BMs Pt's and pts brother will pick him up today Pt confirms pharmacy as [facility] No fever, vital signs stable, pleasant, poor recall memory Regular rate and rhythm, clear to auscultation bilaterally No edema AFVSS, Pleasant, O x poor recall RRR, CTAB No edema Plan: Follow up with PCP Scribed by Hallie Rico under the direct supervision of Dr. Olson. Hospital course: Patient had an uneventful hospital course he was admitted with presumed GI bleed EGD performed revealing gastritis aspirin products and Xarelto were held and oncology maintain antibiotics for bilateral infiltrates on chest x-ray. He began having delusions senior behavioral unit evaluated the patient finding him to have significant dementia with slum score of 8 but he stabilized and was actually doing well with normal hemoglobin of 11 so he was discharged uneventfully with close follow-up with his [place] senior ui software engineer to address the recurrent episodes of V. tach and Xarelto was held until conferring with primary care provider and cardiology due to the fact he did have a GI bleed although not extensive enough to require transfusion regardless will need closer follow-up to make that decision regarding benefits outweigh medical risk especially at advanced age of 86. Cardiac catheter was performed ejection fraction of 10 percent with nonobstructive coronary artery disease so no intervention was made. Discharge Summary Discharge Physical Examination Allergies: Coded Allergies: Penicillins (Verified Allergy, Unknown, 09/26/16) Vitals & I&Os Vital Signs Date Time Temp Pulse Resp B/P (MAP) Pulse Ox O2 Delivery O2 Flow Rate FiO2 10/01/16 08:00 96.6 95 18 110/65 95 Room Air 09/30/16 15:50 1.00 Hospital Course Labs (last 24 hrs) Laboratory Tests 10/01/16 04:28: White Blood Count 9.4, Red Blood Count 4.31L, Hemoglobin 11.2L, Hematocrit 34L, Mean Corpuscular Volume 79L, Mean Corpuscular Hemoglobin 26, Mean Corpuscular Hemoglobin Concent 33, Red Cell Distribution Width 17.3H, Platelet Count 777H, Mean Platelet Volume 10.6H, Sodium Level 140, Potassium Level 3.7, Chloride Level 111H, Carbon Dioxide Level 19L, Anion Gap 10, Blood Urea Nitrogen 17, Creatinine 0.85, Estimat Glomerular Filtration Rate > 60, BUN/Creatinine Ratio 20, Glucose Level 96, Calcium Level 8.4L Pending Labs Laboratory Tests 10/01/16 04:28: White Blood Count 9.4, Red Blood Count 4.31, Hemoglobin 11.2, Hematocrit 34, Mean Corpuscular Volume 79, Mean Corpuscular Hemoglobin 26, Mean Corpuscular Hemoglobin Concent 33, Red Cell Distribution Width 17.3, Platelet Count 777, Mean Platelet Volume 10.6, Sodium Level 140, Potassium Level 3.7, Chloride Level 111, Carbon Dioxide Level 19, Anion Gap 10, Blood Urea Nitrogen 17, Creatinine 0.85, Estimat Glomerular Filtration Rate > 60, BUN/Creatinine Ratio 20, Glucose Level 96, Calcium Level 8.4 Discharge Home Medications: Active Scripts Active Levaquin (Levofloxacin) 500 Mg Tablet 500 Mg PO DAILY Omeprazole 40 Mg Capsule.dr 40 Mg PO DAILY Reported Aleve (Naproxen Sodium) 220 Mg Tablet 220 Mg PO BID PRN Coreg (Carvedilol) 25 Mg Tab 12.5 Mg PO DAILY TAKES 1/2 (25MG) TABLET Aspirin 81 Mg Tab.chew 81 Mg PO DAILY Altace (Ramipril) 5 Mg Capsule 5 Mg PO DAILY Lipitor (Atorvastatin Calcium) 20 Mg Tablet 20 Mg PO DAILY Xarelto (Rivaroxaban) 20 Mg Tablet 20 Mg PO HS Instructions to patient/family Please see electonic discharge instructions given to patient. Clinical Quality Measures DVT/VTE Risk/Contraindication: Risk Factor Score Per Nursin RFS Level Per Nursing on Admit: 4+=Very High ENRIQUE OLSON DO October 01, 2016 11:27
[2016-10-01] MEDS ORDERED: LEVO500T2 PO (11:39)
[2016-10-01] MEDS ORDERED: OMEP40CA36 PO (11:39)
[2016-10-01] MEDS: LEVOFLOXACIN 500 MG TAB (LEVAQUIN) PO SCH (12:24)
== END 2016-10-01 12:40 | disposition home or self-care (01) | DRG 377 ==
LOC: ICU 14:41 → 4TH 09-27 14:40
PROVIDERS: ADMIT Family Medicine; ATTEND Family Medicine
PROC: 0DB78ZX Excision of Stomach, Pylorus, Via Natural or Artificial Opening Endoscopic, Diagnostic (ICD-10-PCS; principal; 2016-09-27 09:30)
PROC: 4A023N7 Measurement of Cardiac Sampling and Pressure, Left Heart, Percutaneous Approach (ICD-10-PCS; 2016-09-30)
PROC: B2111ZZ Fluoroscopy of Multiple Coronary Arteries using Low Osmolar Contrast (ICD-10-PCS; 2016-09-30)
PROC: B2121ZZ Fluoroscopy of Single Coronary Artery Bypass Graft using Low Osmolar Contrast (ICD-10-PCS; 2016-09-30)
PROC: B2181ZZ Fluoroscopy of Left Internal Mammary Bypass Graft using Low Osmolar Contrast (ICD-10-PCS; 2016-09-30)
DX: K92.1 Melena (principal); K29.70 Gastritis, unspecified, without bleeding; D62 Acute posthemorrhagic anemia; J18.9 Pneumonia, unspecified organism; I11.0 Hypertensive heart disease with heart failure; I50.22 Chronic systolic (congestive) heart failure; I47.2 Ventricular tachycardia; Z66 Do not resuscitate; D47.3 Essential (hemorrhagic) thrombocythemia; K44.9 Diaphragmatic hernia without obstruction or gangrene; E86.1 Hypovolemia; I95.9 Hypotension, unspecified; I25.10 Atherosclerotic heart disease of native coronary artery without angina pectoris; I25.5 Ischemic cardiomyopathy; E78.5 Hyperlipidemia, unspecified; I48.91 Unspecified atrial fibrillation; I49.3 Ventricular premature depolarization; M19.91 Primary osteoarthritis, unspecified site; F03.90 Unspecified dementia, unspecified severity, without behavioral disturbance, psychotic disturbance, mood disturbance, and anxiety; Z79.01 Long term (current) use of anticoagulants; Z95.810 Presence of automatic (implantable) cardiac defibrillator; Z95.1 Presence of aortocoronary bypass graft; Z90.79 Acquired absence of other genital organ(s); Z87.891 Personal history of nicotine dependence
CPT/HCPCS: 36415; 71010; 80048; 80053; 81270; 83735; 83880; 84100; 84484; 85007; 85014; 85018; 85025; 85027; 85045; 85379; 85384; 85610; 86850; 86900; 86901; 86920; 88305; 93005; 93306; 93459

== ENCOUNTER 2016-12-22 12:22 | Outpatient (RCR) | payer MEDICARE ==
[2016-10-07 14:40] LABS: BASOPHILS # (AUTO) 0.2 10^3/uL (0.0-0.1); BASOPHILS % (AUTO) 2 % (0-10); EOSINOPHILS # (AUTO) 0.3 10^3/uL (0.0-0.3); EOSINOPHILS % (AUTO) 3 % (0-10); LYMPHOCYTES # (AUTO) 1.8 X 10^3 (1.0-4.0); LYMPHOCYTES % (AUTO) 17 % (12-44); MEAN CORPUSCULAR HEMOGLOBIN 26 PG (25-34); MEAN CORPUSCULAR HGB CONC 33 G/DL (32-36); MEAN CORPUSCULAR VOLUME 80 FL (80-99); MEAN PLATELET VOLUME 10.5 FL (7.4-10.4); MONOCYTES # (AUTO) 0.8 X 10^3 (0.0-1.0); MONOCYTES % (AUTO) 7 % (0-12); NEUTROPHILS # (AUTO) 7.1 X 10^3 (1.8-7.8); NEUTROPHILS % (AUTO) 70 % (42-75); RED BLOOD COUNT 4.68 10^6/uL (4.35-5.85); RED CELL DISTRIBUTION WIDTH 16.8 % (10.0-14.5); WHITE BLOOD COUNT 10.1 10^3/uL (4.3-11.0)
[2016-10-07 14:41] LABS: PLATELET COUNT 1160 10^3/uL (130-400)
[2016-11-02 13:35] LABS: BASOPHILS # (AUTO) 0.2 10^3/uL (0.0-0.1); BASOPHILS % (AUTO) 3 % (0-10); EOSINOPHILS # (AUTO) 0.2 10^3/uL (0.0-0.3); EOSINOPHILS % (AUTO) 3 % (0-10); LYMPHOCYTES # (AUTO) 1.4 X 10^3 (1.0-4.0); LYMPHOCYTES % (AUTO) 21 % (12-44); MEAN CORPUSCULAR HEMOGLOBIN 25 PG (25-34); MEAN CORPUSCULAR HGB CONC 32 G/DL (32-36); MEAN CORPUSCULAR VOLUME 77 FL (80-99); MEAN PLATELET VOLUME 9.7 FL (7.4-10.4); MONOCYTES # (AUTO) 0.4 X 10^3 (0.0-1.0); MONOCYTES % (AUTO) 6 % (0-12); NEUTROPHILS # (AUTO) 4.4 X 10^3 (1.8-7.8); NEUTROPHILS % (AUTO) 68 % (42-75); PLATELET COUNT 490 10^3/uL (130-400); RED BLOOD COUNT 4.76 10^6/uL (4.35-5.85); RED CELL DISTRIBUTION WIDTH 16.9 % (10.0-14.5); WHITE BLOOD COUNT 6.5 10^3/uL (4.3-11.0)
[2016-11-02 14:05] LABS: ALANINE AMINOTRANSFERASE 19 U/L (0-55); ALBUMIN 3.5 G/DL (3.2-4.5); ANION GAP 8 MMOL/L (5-14); ASPARTATE AMINO TRANSFERASE 19 U/L (5-34); BILIRUBIN,TOTAL 0.8 MG/DL (0.1-1.0); BLOOD UREA NITROGEN 16 MG/DL (7-18); BUN/CREATININE RATIO 16; CALCIUM 8.9 MG/DL (8.5-10.1); CARBON DIOXIDE 24 MMOL/L (21-32); CHLORIDE 106 MMOL/L (98-107); CREATININE SERUM 1.01 MG/DL (0.60-1.30); GFR ESTIMATED > 60; GLUCOSE 122 MG/DL (70-105); POTASSIUM 4.3 MMOL/L (3.6-5.0); SODIUM 138 MMOL/L (135-145); TOTAL PROTEIN 6.4 G/DL (6.4-8.2)
[2016-11-24 13:57] LABS: BASOPHILS # (AUTO) 0.2 10^3/uL (0.0-0.1); BASOPHILS % (AUTO) 2 % (0-10); EOSINOPHILS # (AUTO) 0.2 10^3/uL (0.0-0.3); EOSINOPHILS % (AUTO) 2 % (0-10); LYMPHOCYTES # (AUTO) 1.5 X 10^3 (1.0-4.0); LYMPHOCYTES % (AUTO) 17 % (12-44); MEAN CORPUSCULAR HEMOGLOBIN 24 PG (25-34); MEAN CORPUSCULAR HGB CONC 32 G/DL (32-36); MEAN CORPUSCULAR VOLUME 77 FL (80-99); MONOCYTES # (AUTO) 0.5 X 10^3 (0.0-1.0); MONOCYTES % (AUTO) 6 % (0-12); NEUTROPHILS # (AUTO) 6.2 X 10^3 (1.8-7.8); NEUTROPHILS % (AUTO) 72 % (42-75); PLATELET COUNT 546 10^3/uL (130-400); RED BLOOD COUNT 5.14 10^6/uL (4.35-5.85); RED CELL DISTRIBUTION WIDTH 17.8 % (10.0-14.5); WHITE BLOOD COUNT 8.6 10^3/uL (4.3-11.0)
[2016-11-24 14:27] LABS: ANION GAP 8 MMOL/L (5-14); BLOOD UREA NITROGEN 14 MG/DL (7-18); BUN/CREATININE RATIO 14; CARBON DIOXIDE 24 MMOL/L (21-32); CHLORIDE 107 MMOL/L (98-107); CREATININE SERUM 1.03 MG/DL (0.60-1.30); POTASSIUM 3.7 MMOL/L (3.6-5.0); SODIUM 139 MMOL/L (135-145)
[2016-11-24 14:28] LABS: ALANINE AMINOTRANSFERASE 21 U/L (0-55); ALBUMIN 3.5 GM/DL (3.2-4.5); ASPARTATE AMINO TRANSFERASE 19 U/L (5-34); BILIRUBIN,TOTAL 0.7 MG/DL (0.1-1.0); CALCIUM 8.9 MG/DL (8.5-10.1); GFR ESTIMATED > 60; GLUCOSE 128 MG/DL (70-105); HEMOLYSIS 8 (-100-29); ICTERUS 0.6 (-100-1.9); LIPEMIA 5 (-100-49); TOTAL PROTEIN 6.4 GM/DL (6.4-8.2)
[2016-11-24 15:34] LABS: THYROID STIMULATING HORMONE 1.74 UIU/ML (0.35-4.94)
[~2016-12-22 12:22] MED LIST: ASPI-999 PO; ATOR20TA49 PO; CARV12.52 PO; CRV25T PO; LEVO500T2 PO; NAPR220T66 PO; OMEP40CA36 PO; RAMI5CAP PO; RIVA20TA PO
[2016-12-22 13:15] LABS: BASOPHILS # (AUTO) 0.2 10^3/uL (0.0-0.1); BASOPHILS % (AUTO) 2 % (0-10); EOSINOPHILS # (AUTO) 0.2 10^3/uL (0.0-0.3); EOSINOPHILS % (AUTO) 2 % (0-10); LYMPHOCYTES # (AUTO) 1.5 X 10^3 (1.0-4.0); LYMPHOCYTES % (AUTO) 18 % (12-44); MEAN CORPUSCULAR HEMOGLOBIN 24 PG (25-34); MEAN CORPUSCULAR HGB CONC 31 G/DL (32-36); MEAN CORPUSCULAR VOLUME 77 FL (80-99); MONOCYTES # (AUTO) 0.5 X 10^3 (0.0-1.0); MONOCYTES % (AUTO) 6 % (0-12); NEUTROPHILS # (AUTO) 6.2 X 10^3 (1.8-7.8); NEUTROPHILS % (AUTO) 73 % (42-75); PLATELET COUNT 521 10^3/uL (130-400); RED BLOOD COUNT 5.28 10^6/uL (4.35-5.85); RED CELL DISTRIBUTION WIDTH 18.4 % (10.0-14.5); RETICULOCYTE % 1.05 % (0.50-2.40); WHITE BLOOD COUNT 8.6 10^3/uL (4.3-11.0)
[2016-12-22 13:56] LABS: ALANINE AMINOTRANSFERASE 18 U/L (0-55); ALBUMIN 3.6 GM/DL (3.2-4.5); ANION GAP 10 MMOL/L (5-14); ASPARTATE AMINO TRANSFERASE 15 U/L (5-34); BILIRUBIN,TOTAL 0.8 MG/DL (0.1-1.0); BLOOD UREA NITROGEN 15 MG/DL (7-18); BUN/CREATININE RATIO 14; CARBON DIOXIDE 22 MMOL/L (21-32); CHLORIDE 106 MMOL/L (98-107); GFR ESTIMATED > 60; GLUCOSE 150 MG/DL (70-105); POTASSIUM 3.9 MMOL/L (3.6-5.0); SODIUM 138 MMOL/L (135-145); TOTAL PROTEIN 6.6 GM/DL (6.4-8.2)
[2016-12-22 14:15] LABS: THYROID STIMULATING HORMONE 1.87 UIU/ML (0.35-4.94)
== END 2017-01-05 | disposition home or self-care (01) ==
LOC: ONC 12:22
PROVIDERS: ATTEND Internal Medicine Hematology & Oncology
DX: D47.3 Essential (hemorrhagic) thrombocythemia (principal); K29.71 Gastritis, unspecified, with bleeding; D64.9 Anemia, unspecified; I48.91 Unspecified atrial fibrillation; Z95.1 Presence of aortocoronary bypass graft
CPT/HCPCS: 36415; 80053; 82728; 83540; 84443; 85025; 85045; 99213; 99214

== ENCOUNTER 2017-02-25 13:19 | Outpatient (RCR) | payer MEDICARE ==
[2017-02-25 13:45] LABS: BASOPHILS # (AUTO) 0.1 10^3/uL (0.0-0.1); BASOPHILS % (AUTO) 1 % (0-10); EOSINOPHILS # (AUTO) 0.2 10^3/uL (0.0-0.3); EOSINOPHILS % (AUTO) 2 % (0-10); LYMPHOCYTES # (AUTO) 1.5 X 10^3 (1.0-4.0); LYMPHOCYTES % (AUTO) 15 % (12-44); MEAN CORPUSCULAR HEMOGLOBIN 26 PG (25-34); MEAN CORPUSCULAR HGB CONC 32 G/DL (32-36); MEAN CORPUSCULAR VOLUME 82 FL (80-99); MEAN PLATELET VOLUME 9.7 FL (7.4-10.4); MONOCYTES # (AUTO) 0.6 X 10^3 (0.0-1.0); MONOCYTES % (AUTO) 5 % (0-12); NEUTROPHILS # (AUTO) 7.8 X 10^3 (1.8-7.8); NEUTROPHILS % (AUTO) 77 % (42-75); PLATELET COUNT 568 10^3/uL (130-400); RED BLOOD COUNT 6.08 10^6/uL (4.35-5.85); RED CELL DISTRIBUTION WIDTH 20.8 % (10.0-14.5); WHITE BLOOD COUNT 10.1 10^3/uL (4.3-11.0)
[2017-02-25 14:04] LABS: ALANINE AMINOTRANSFERASE 34 U/L (0-55); ALBUMIN 3.5 GM/DL (3.2-4.5); ANION GAP 10 MMOL/L (5-14); ASPARTATE AMINO TRANSFERASE 32 U/L (5-34); BILIRUBIN,TOTAL 0.8 MG/DL (0.1-1.0); BLOOD UREA NITROGEN 14 MG/DL (7-18); BUN/CREATININE RATIO 14; CALCIUM 9.4 MG/DL (8.5-10.1); CARBON DIOXIDE 22 MMOL/L (21-32); CHLORIDE 106 MMOL/L (98-107); CREATININE SERUM 1.01 MG/DL (0.60-1.30); GFR ESTIMATED > 60; GLUCOSE 170 MG/DL (70-105); POTASSIUM 4.2 MMOL/L (3.6-5.0); SODIUM 138 MMOL/L (135-145); TOTAL PROTEIN 6.7 GM/DL (6.4-8.2)
== END 2017-02-27 | disposition home or self-care (01) ==
LOC: ONC 13:19
PROVIDERS: ATTEND Internal Medicine Hematology & Oncology
DX: D47.3 Essential (hemorrhagic) thrombocythemia (principal); K29.71 Gastritis, unspecified, with bleeding; D50.9 Iron deficiency anemia, unspecified; I48.91 Unspecified atrial fibrillation; I25.10 Atherosclerotic heart disease of native coronary artery without angina pectoris; I10 Essential (primary) hypertension; E78.5 Hyperlipidemia, unspecified; I08.1 Rheumatic disorders of both mitral and tricuspid valves; Z87.891 Personal history of nicotine dependence; Z95.1 Presence of aortocoronary bypass graft; Z95.810 Presence of automatic (implantable) cardiac defibrillator; Z79.899 Other long term (current) drug therapy
CPT/HCPCS: 36415; 80053; 82728; 83540; 85025; 99213

== ENCOUNTER 2017-03-25 13:16 | Outpatient (RCR) | payer MEDICARE ==
[2017-03-25 13:39] LABS: BASOPHILS # (AUTO) 0.1 10^3/uL (0.0-0.1); BASOPHILS % (AUTO) 1 % (0-10); EOSINOPHILS # (AUTO) 0.2 10^3/uL (0.0-0.3); EOSINOPHILS % (AUTO) 2 % (0-10); HEMATOCRIT 48 % (40-54); HEMOGLOBIN 15.9 G/DL (13.3-17.7); LYMPHOCYTES # (AUTO) 1.9 X 10^3 (1.0-4.0); LYMPHOCYTES % (AUTO) 21 % (12-44); MEAN CORPUSCULAR HEMOGLOBIN 28 PG (25-34); MEAN CORPUSCULAR HGB CONC 33 G/DL (32-36); MEAN CORPUSCULAR VOLUME 84 FL (80-99); MEAN PLATELET VOLUME 9.7 FL (7.4-10.4); MONOCYTES # (AUTO) 0.5 X 10^3 (0.0-1.0); MONOCYTES % (AUTO) 6 % (0-12); NEUTROPHILS # (AUTO) 6.2 X 10^3 (1.8-7.8); NEUTROPHILS % (AUTO) 70 % (42-75); PLATELET COUNT 533 10^3/uL (130-400); RED BLOOD COUNT 5.69 10^6/uL (4.35-5.85); RED CELL DISTRIBUTION WIDTH 20.3 % (10.0-14.5); WHITE BLOOD COUNT 8.9 10^3/uL (4.3-11.0)
[2017-03-25 13:41] LABS: SMEAR SCAN COMMENT YES
[2017-03-25 14:02] LABS: BUN/CREATININE RATIO 16; CARBON DIOXIDE 25 MMOL/L (21-32); CHLORIDE 107 MMOL/L (98-107); CREATININE SERUM 1.01 MG/DL (0.60-1.30); POTASSIUM 4.2 MMOL/L (3.6-5.0); SODIUM 139 MMOL/L (135-145)
[2017-03-25 14:03] LABS: ALANINE AMINOTRANSFERASE 28 U/L (0-55); ALBUMIN 3.5 GM/DL (3.2-4.5); ALKALINE PHOSPHATASE 83 U/L (40-136); BILIRUBIN,TOTAL 0.7 MG/DL (0.1-1.0); CALCIUM 9.4 MG/DL (8.5-10.1); GFR ESTIMATED > 60; GLUCOSE 164 MG/DL (70-105); TOTAL PROTEIN 6.8 GM/DL (6.4-8.2)
== END 2017-06-23 | disposition home or self-care (01) ==
LOC: ONC 13:16
PROVIDERS: ATTEND Internal Medicine Hematology & Oncology
DX: D47.3 Essential (hemorrhagic) thrombocythemia (principal); K29.71 Gastritis, unspecified, with bleeding; D50.9 Iron deficiency anemia, unspecified; I48.91 Unspecified atrial fibrillation; I25.10 Atherosclerotic heart disease of native coronary artery without angina pectoris; I10 Essential (primary) hypertension; E78.5 Hyperlipidemia, unspecified; I08.1 Rheumatic disorders of both mitral and tricuspid valves; Z87.891 Personal history of nicotine dependence; Z95.1 Presence of aortocoronary bypass graft; Z95.810 Presence of automatic (implantable) cardiac defibrillator; Z79.899 Other long term (current) drug therapy
CPT/HCPCS: 80053; 85025; 99213

== ENCOUNTER 2018-06-02 18:29 | Inpatient (IN) | payer MEDICARE ==
[~2018-06-02] VITALS: Ht 188 cm; Wt 70.8 kg
[2018-06-02] MEDS ORDERED: ANTACID SUSP 30 ML UDC (MYLANTA) PO PRN (18:45)
[2018-06-02] MEDS ORDERED: ACETAMINOPHEN 500 MG TAB (TYLENOL) PO PRN (18:45)
[2018-06-02] MEDS ORDERED: ONDANSETRON 4 MG/2 ML (SDV) Z0FRAN IV PRN (18:45)
[2018-06-02] MEDS ORDERED: MILK OF MAGNESIA 400 MG/5 ML 30 ML UDC PO PRN (18:45)
[2018-06-02] MEDS ORDERED: MELATONIN 3 MG TABLET PO PRN (18:45)
--- NOTE | 2018-06-02 19:35 | NUR ---
Received pt from [facility] at this time, pt transferred to bed, monitors attached to pt, assessment done at this time. Pt introduced to surroundings, call light within reach, pt denies needs at this time.
[2018-06-02 19:44] VITALS: BP 98/78
[2018-06-02 20:00] VITALS: BP 89/62
[2018-06-02] MEDS ORDERED: CATHETER FLUSH 10 ML SYR IV PRN (20:00)
[2018-06-02] MEDS ORDERED: ACETAMINOPHEN 325 MG TABLET PO PRN (20:00)
--- NOTE | 2018-06-02 20:00 | NUR ---
Pt is a poor historian and denies knowledge of previous medical history. Pt also answers questions in the affirmative or negative but is unsure of timeframe. Admission done to the best of this RN's ability.
[2018-06-02] MEDS: CATHETER FLUSH 10 ML SYR IV SCH (20:48)
[2018-06-02] MEDS: FUROSEMIDE 40 MG/4 ML INJ (LASIX) IV SCH (20:48)
[2018-06-02 21:00] VITALS: BP 94/75
[2018-06-02 22:00] VITALS: BP 93/71
[2018-06-02 23:00] VITALS: BP 96/75
[2018-06-03] VITALS (25 sets, daily range): BP systolic 82–96; BP diastolic 49–75
--- NOTE | 2018-06-03 03:21 | NUR ---
Per culture media laboratory assistant, pt refused blood draw this morning. This RN spoke with pt, discussed benefits of obtaining lab specimens, and attempted therapeutic communication. Pt again refuses to this RN, stating "I ain't got much blood". Therapeutic communication attempted again, this RN offered to have blood drawn later after pt is awake for the day, pt again refused.
--- NOTE | 2018-06-03 03:45 | NUR ---
Pt refusing morning chest X-ray. This RN attempted therapeutic communication and educated pt regarding hospital policies/procedures and importance of tests. Pt verbalized understanding, continues to refuse.
--- NOTE | 2018-06-03 05:13 | Pulmonary Consultation ---
History of Present Illness History of Present Illness Date of Consultation 06/03/18 05:07 Time Seen by Provider: 05:08 Date of Admission History of Present Illness 87yo very noncompliant with hx of severe cardiomyopathy with EF 10% in 2017 transferred here from [facility] secondary to hypotension with SBP in the 70's. He was directly admitted to ICU. His SBP is currently 88 (asymptomatic). PT is refusing labs and radiology. When I walked in to talk with patient about possible thoracentesis and needing labs/CXR pt told me to get out. He does not want labs/CXR or thoracentesis done. Unable to obtain ROS. I am consulted for pulmonary management. Allergies and Home Medications Allergies Coded Allergies: Penicillins (Verified Allergy, Unknown, 09/26/16) Home Medications Aspirin 81 Mg Tab.chew, 81 MG PO DAILY, (Reported) Atorvastatin Calcium 20 Mg Tablet, 20 MG PO DAILY, (Reported) Carvedilol 25 Mg Tab, 12.5 MG PO DAILY, (Reported) TAKES 1/2 (25MG) TABLET Levofloxacin 500 Mg Tablet, 500 MG PO DAILY Prescribed by: ENRIQUE STEPHENS on 10/01/16 1139 Omeprazole 40 Mg Capsule.dr, 40 MG PO DAILY Prescribed by: ENRIQUE STEPHENS on 10/01/16 1139 Ramipril 5 Mg Capsule, 5 MG PO DAILY, (Reported) Past Orkgkah-Qevsbm-Pexarg Hx Patient Social History Alcohol Use: Denies Use Recreational Drug Use: No Smoking Status: Former Smoker Type Used: Cigarettes Former Smoker, Quit: May 31, 1979 2nd Hand Smoke Exposure: No Recent Foreign Travel: No Contact w/Someone Who Travel: No Recent Infectious Disease Expo: No Recent Hopitalizations: Yes ([place] FROM [place]) Immunizations Up To Date Date of Influenza Vaccine: Feb 28, 2018 Seasonal Allergies Seasonal Allergies: No Past Medical History Surgeries: Yes Appendectomy, CABG, Defibrillator, Gallbladder, Prostatectomy Respiratory: No Cardiac: Yes (paroxysmal a-fib; chronic ischemic heart disease) Atrial Fibrillation, Coronary Artery Disease, Hypertension Neurological: No Reproductive Disorders: No Sexually Transmitted Disease: No HIV/AIDS: No Genitourinary: Yes Prostate Problems Gastrointestinal: Yes Gastrointestinal Bleed, Gall Bladder Disease Musculoskeletal: Yes Arthritis Endocrine: No HEENT: Yes Loss of Vision: Denies Hearing Impairment: Hard of Hearing Cancer: No Psychosocial: No Integumentary: No Blood Disorders: Yes (Primary thrombocytosis) Adverse Reaction/Blood Tranf: No Family Medical History Patient reports no known family medical history. Heart Disease, Hypertension, Other Conditions/Hx Review of Systems Time Seen by Provider: 05:14 Sepsis Event Evaluation Height, Weight, BMI Height: 6'2.00" Weight: 151lbs. 2.0oz. 68.998167yi; 19.4 BMI Method: Exam Exam Vital Signs Date Time Temp Pulse Resp B/P (MAP) Pulse Ox O2 Delivery O2 Flow Rate FiO2 06/03/18 04:00 96 Nasal Cannula 4.00 06/03/18 03:45 97.5 06/03/18 03:00 72 17 86/59 (68) 96 Nasal Cannula 4.00 06/03/18 02:00 80 13 93/67 (76) 97 Nasal Cannula 4.00 06/03/18 01:00 70 16 86/56 (66) 97 Nasal Cannula 4.00 06/03/18 01:00 84 06/03/18 00:20 97.2 06/03/18 00:00 84 15 88/57 (67) 98 Nasal Cannula 4.00 06/03/18 00:00 96 Nasal Cannula 4.00 06/02/18 23:50 Nasal Cannula 4.00 06/02/18 23:00 88 23 96/75 (82) 98 Nasal Cannula 4.00 06/02/18 22:00 95 15 93/71 (78) 98 Nasal Cannula 4.00 06/02/18 21:00 91 34 94/75 (81) 97 Nasal Cannula 4.00 06/02/18 20:53 83 06/02/18 20:00 97 24 89/62 (71) 97 Nasal Cannula 4.00 06/02/18 19:44 96.7 86 24 98/78 (85) 97 Nasal Cannula 4.00 06/02/18 19:35 97 Nasal Cannula 4.00 I & O 06/03/18 07:00 Intake Total 0 ml Output Total 400 ml Balance -400 ml Height & Weight Height: 6'2.00" Weight: 151lbs. 2.0oz. 68.123528it; 19.4 BMI Method: General Appearance: No Apparent Distress, WD/WN Neck: Full Range of Motion, Normal Inspection, Non Tender, Supple Respiratory: Chest Non Tender, Lungs Clear, Normal Breath Sounds, No Accessory Muscle Use, No Respiratory Distress Cardiovascular: Regular Rate, Rhythm, No Edema, No Gallop Capillary Refill: Less Than 3 Seconds Gastrointestinal: normal bowel sounds, non tender, soft Extremity: Normal Capillary Refill, Normal Inspection Neurologic/Psychiatric: Alert, Oriented x3 Skin: Normal Color, Warm/Dry Lymphatic: No Adenopathy Assessment/Plan Assessment/Plan Severe cardiomyopathy EF 10% 2017 -Lasix Pleural effusions bilaterally reported from [place]. -Pt refuses thoracentesis -PT refuses labs and CXR Hypotension (asymptomatic) I am going to transfer pt to 4th floor since he is refusing everything. Hospice is consulted. I am going to sign off. If pt changes his mind about accepting medical treatment and thoracentesis please let me know. YANA BARAHONA DO Jun 03, 2018 05:13
[2018-06-03] MEDS ORDERED: POTASSIUM CL 10MEQ/50ML IVPB 50 ML IV SCH (06:00)
[2018-06-03] MEDS ORDERED: KCL 20 MEQ TAB (K-DUR) PO SCH (06:00)
[2018-06-03] MEDS ORDERED: MAGNESIUM 1 GM/100 ML IVPB 100 ML IV SCH (06:00)
[2018-06-03] MEDS: CATHETER FLUSH 10 ML SYR IV SCH ×3 (06:10→22:16)
[2018-06-03] MEDS: FUROSEMIDE 40 MG/4 ML INJ (LASIX) IV SCH ×2 (06:11→19:03)
--- NOTE | 2018-06-03 09:17 | Consultation-Cardiology ---
HPI-Cardiology Cardiology Consultation Date of Consultation 06/03/18 Date of Admission Time Seen by Provider: 09:10 Indication: hypotension HPI 87 years old gentleman with history of severe cardiomyopathy, noncompliant with medication, seen in [place] emergency room and was hypotensive transferred to our hospital. Upper my evaluation patient was laying down comfortably in bed , denied any active pain. Denied any palpitation, denied any significant shortness of breath. Has been refusing lab work and x-ray. I agreed on taking his medication. I had a long discussion with the patient regarding management plan, family are on their way and will discuss long-term treatment plan Home Medications & Allergies Allergies: Coded Allergies: Penicillins (Verified Allergy, Unknown, 09/26/16) Home Medication List Reviewed: Yes DAD-Zvvbqz-Mnhgpw Hx Patient Social History Marital Status: Employed/Student: retired Alcohol Use: Denies Use Recreational Drug Use: No Smoking Status: Former Smoker Former smoker/When Quit: Feb 28, 1987 Type Used: Cigarettes 2nd Hand Smoke Exposure: No Recent Foreign Travel: No Recent Infectious Disease Expo: No Recent Hopitalizations: Yes ([place] FROM [place]) Physical Abuse Screen: No Sexual Abuse: No Immunizations Up To Date Date of Influenza Vaccine: Feb 28, 2018 Past Medical History past medical history as described below Family Medical History Significant Family History: Heart Disease, Hypertension, Other Conditions/Hx Family Medical Hx noncontributory to his current condition Family History: Patient reports no known family medical history. Review of Systems Constitutional: see HPI, malaise, weakness EENTM: see HPI, no symptoms reported Respiratory: see HPI; No cough; dyspnea on exertion; No hemoptysis, No orthopnea, No phlegm, No short of breath, No stridor, No wheezing, No other Cardiovascular: see HPI; No chest pain; edema; No Hx of Intervention, No palpitations, No syncope, No vascular heart diseas, No other Gastrointestinal: no symptoms reported, see HPI Genitourinary: no symptoms reported, see HPI Musculoskeletal: no symptoms reported, see HPI Skin: no symptoms reported, see HPI Psychiatric/Neurological: No Symptoms Reported, See HPI Physical Exam Vital Signs Vital Signs - First Documented 06/02/18 06/02/18 19:35 19:44 Temp 96.7 Pulse 86 Resp 24 B/P (MAP) 98/78 (85) Pulse Ox 97 O2 Delivery Nasal Cannula O2 Flow Rate 4.00 Capillary Refill : Less Than 3 Seconds Height, Weight, BMI Height: 6'2.00" Weight: 151lbs. 8.0oz. 68.782391tt; 19.4 BMI Method: General Appearance: WD/WN, Mild Distress Eyes: Bilateral Eye Normal Inspection, Bilateral Eye PERRL, Bilateral Eye EOMI HEENT: PERRL/EOMI, TMs Normal, Normal ENT Inspection, Pharynx Normal Neck: Full Range of Motion, Normal Inspection, Non Tender, Supple, JVD Respiratory: Chest Non Tender, Lungs Clear, Normal Breath Sounds, No Accessory Muscle Use, No Respiratory Distress, Crackles Cardiovascular: Regular Rate, Rhythm, Systolic Murmur, JVD, Tachycardia Gastrointestinal: Normal Bowel Sounds, No Organomegaly, No Pulsatile Mass, Non Tender, Soft Back: Normal Inspection, No CVA Tenderness, No Vertebral Tenderness Extremity: Normal Capillary Refill, Normal Inspection, Normal Range of Motion, Non Tender, No Calf Tenderness, Pedal Edema Neurologic/Psychiatric: Alert, Oriented x3, No Motor/Sensory Deficits, Normal Mood/Affect Skin: Normal Color, Warm/Dry Lymphatic: No Adenopathy A/P-Cardiology Admission Diagnosis Hypotensive shock Congestive heart failure, chronic compensated left ventricular systolic dysfunction, ischemic cardiomyopathy Coronary artery disease Hyperlipidemia Assessment/Plan Hypotensive shock secondary to cardiogenic shock, I will start dobutamine drip at 5 mcg/kg/m, evaluate tolerance and response. Coronary artery disease history of CABG, cardiac catheterization was carried out in September 2016 showing patent AHMADI to LAD and vein graft to the right coronary artery, 60 percent stenosis in the vein graft, small vessel disease, nonobstructive disease Congestive heart failure, severe left ventricular systolic dysfunction ejection fraction 10 percent, ischemic cardiomyopathy, chronic compensated left ventricular systolic dysfunction. Cannot tolerate beta blockers, ALBERT inhibitor and/or ARB due to hypotension. History of permanent pacemaker/ICD, good sensing and capture activity. Had history of multiple episodes of ventricular tachycardia required pacing. History of GI bleed, continue to monitor H&H. Patient was maintained on Xarelto, probably underlying atrial fibrillation, no episodes of atrial fibrillation noted, had episodes of atrial tachycardia on the pacemaker interrogation. Hyperlipidemia, evaluate lipid profile Confusion, dementia, unknown duration, managed by primary care physician History of gallstones, appendectomy, prostatectomy Noncompliance with medication, refusing x-rays or blood work. I'll start him on dobutamine drip and evaluate tolerance and response Clinical Quality Measures DVT/VTE Risk/Contraindication: Risk Factor Score Per Nursin RFS Level Per Nursing on Admit: 4+=Very High NIC LOVE MD Jun 03, 2018 09:17
[2018-06-03 09:26] LABS: BASOPHILS # (AUTO) 0.1 10^3/uL (0.0-0.1); BASOPHILS % (AUTO) 1 % (0-10); EOSINOPHILS # (AUTO) 0.2 10^3/uL (0.0-0.3); EOSINOPHILS % (AUTO) 2 % (0-10); HEMATOCRIT 43 % (40-54); HEMOGLOBIN 14.2 G/DL (13.3-17.7); LYMPHOCYTES # (AUTO) 1.9 X 10^3 (1.0-4.0); LYMPHOCYTES % (AUTO) 16 % (12-44); MEAN CORPUSCULAR HEMOGLOBIN 31 PG (25-34); MEAN CORPUSCULAR HGB CONC 33 G/DL (32-36); MEAN CORPUSCULAR VOLUME 95 FL (80-99); MEAN PLATELET VOLUME 10.2 FL (7.4-10.4); MONOCYTES # (AUTO) 1.4 X 10^3 (0.0-1.0); MONOCYTES % (AUTO) 11 % (0-12); NEUTROPHILS # (AUTO) 8.6 X 10^3 (1.8-7.8); NEUTROPHILS % (AUTO) 70 % (42-75); RED BLOOD COUNT 4.56 10^6/uL (4.35-5.85); RED CELL DISTRIBUTION WIDTH 16.6 % (10.0-14.5); WHITE BLOOD COUNT 12.2 10^3/uL (4.3-11.0)
[2018-06-03 09:31] LABS: PLATELET COUNT 1270 10^3/uL (130-400)
[2018-06-03 09:45] LABS: BUN/CREATININE RATIO 19; CALCIUM 8.9 MG/DL (8.5-10.1); CARBON DIOXIDE 26 MMOL/L (21-32); CHLORIDE 101 MMOL/L (98-107); CREATININE SERUM 0.86 MG/DL (0.60-1.30); GFR ESTIMATED > 60; GLUCOSE 93 MG/DL (70-105); PHOSPHORUS 3.4 MG/DL (2.3-4.7); POTASSIUM 3.6 MMOL/L (3.6-5.0); SODIUM 139 MMOL/L (135-145)
[2018-06-03] MEDS ORDERED: SPIR25TA5 PO (10:05)
[2018-06-03] MEDS ORDERED: FURO80TA83 PO (10:05)
[2018-06-03] MEDS ORDERED: CARV3.12 PO (10:05)
[2018-06-03] MEDS ORDERED: HYDR500C2 PO ×2 (10:06)
[2018-06-03] MEDS: DOBUTamine DRIP 250 ML IV SCH ×2 (10:15→18:50)
--- NOTE | 2018-06-03 10:27 | NUR ---
CALLED [facility] IN [place] FOR A LIST OF RECENTLY FILLED MEDICATIONS. I WENT OVER THAT LIST WITH THE PATIENTS . [facility] FILLED: 06-02-18 HYDROXYUREA 500MG 1 ,,FR,CALVIN AND 2 , (SHE STATES SHE WILL ONLY GIVE HIM 1 CAPSULE EVERY OTHER DAY AFTER THIS IS PICKED UP) 05-11-18 LIPITOR 20MG DAILY #30 05-02-18 SPIRONOLACTONE 25MG DAILY #30 (STATES THIS WAS DISCONTINUED) 04-05-18 LASIX 80MG 1/2 DAILY #30 03-28-18 COREG 3.125MG BID #180 (STATES THIS WAS DISCONTINUED) 02-25-18 LISINOPRIL 2.5MG DAILY #30 (NO LONGER TAKING) HE TAKES ASPIRIN 81MG CHEWABLE OTC DAILY.
--- NOTE | 2018-06-03 11:06 | History & Physical-Hospitalist ---
History of Present Illness HPI/Chief Complaint Pt is an 87yoCM with a PMH of ischemic cardiomyopathy s/p AICD placement, HTN, a fib, CAD s/p CABG who presented to outside ER due to hypotension. He is unable to tell me most of his history so history is from the ER physician who saw him yesterday. Reportedly a home health care nurse same him on 05/30 and found him to have low blood pressure. He was sent to the ER for fluids per his instructional support specialist and stopped his lasix but demanded they be done within 30m. This was unable to be arranged and so he left AMA at that time. Yesterday a home health nurse saw him again and he remained hypotensive so he was again sent to the ER for evaluation. He was found to be hypotensive with SBP 90-80s and chest x-ray revealed a large left pleural effusion. He was transferred here for acutely decompensated heart failure for cardiology and pulmonology consultation. This morning he refused pulmonology evaluation, labs, and XR. Her does not remember this. Source: patient, family Date Seen 06/03/18 Time Seen by a Provider: 11:00 Attending Physician Markos Colindres MD PCP Zoltan Mckeon MD Referring Physician Date of Admission Jun 02, 2018 at 19:36 Home Medications & Allergies Home Medications Reviewed patient Home Medication Reconciliation performed by pharmacy medication reconciliations vibration technician and/or nursing. Patients Allergies have been reviewed. Allergies Allergies Coded Allergies Penicillins (Verified Allergy, Unknown, 09/26/16) Past [id number]-[id number]-Fojnpu Hx Past Med/Social Hx: Reviewed Nursing Past Med/Soc Hx Patient Social History Marrital Status: Employed/Student: retired Alcohol Use: Denies Use Recreational Drug Use: No Smoking Status: Former Smoker Former Smoker, Quit: May 31, 1979 Type Used: Cigarettes 2nd Hand Smoke Exposure: No Physical Abuse Screen: No Sexual Abuse: No Recent Foreign Travel: No Contact w/other who traveled: No Recent Hopitalizations: Yes ([place] FROM [place]) Recent Infectious Disease Expo: No Immunizations Up To Date Date of Influenza Vaccine: Feb 28, 2018 Seasonal Allergies Seasonal Allergies: No Past Medical History Surgeries: Appendectomy, CABG, Defibrillator, Gallbladder, Prostatectomy Cardiac: Atrial Fibrillation, Coronary Artery Disease, Hypertension Reproductive: No Sexually Transmitted Disease: No HIV/AIDS: No Genitourinary: Prostate Problems Gastrointestinal: Gastrointestinal Bleed, Gall Bladder Disease Musculoskeletal: Arthritis Loss of Vision: Denies Hearing Impairment: Hard of Hearing History of Blood Disorders: Yes (Primary thrombocytosis) Adverse Reaction to Blood [place]: No Family History Reviewed Nursing Family Hx Patient reports no known family medical history. Heart Disease, Hypertension, Other Conditions/Hx Review of Systems ROS-Unable to Obtain: denies most everything but unsure if accurate Constitutional: No chills, No fever EENTM: No blurred vision, No double vision, No nose congestion, No throat pain Respiratory: dyspnea on exertion, short of breath Cardiovascular: see HPI; No chest pain, No palpitations Gastrointestinal: No abdominal pain, No constipation, No diarrhea, No nausea, No vomiting Genitourinary: No dysuria, No frequency Musculoskeletal: No joint pain, No muscle pain Skin: No lesions, No rash Psychiatric/Neurological: Denies Headache, Denies Numbness, Denies Tingling Physical Exam Physical Exam Vital Signs Vital Signs - First Documented 06/02/18 06/02/18 19:35 19:44 Temp 96.7 Pulse 86 Resp 24 B/P (MAP) 98/78 (85) Pulse Ox 97 O2 Delivery Nasal Cannula O2 Flow Rate 4.00 Capillary Refill : Less Than 3 Seconds Height, Weight, BMI Height: 6'2.00" Weight: 151lbs. 8.0oz. 68.444329fu; 19.4 BMI Method: General Appearance: No Apparent Distress, Chronically ill, Thin HEENT: Moist Mucous Membranes; No Scleral Icterus (L), No Scleral Icterus (R) Neck: Non Tender, Supple Respiratory: Decreased Breath Sounds (on left) Cardiovascular: No Murmur, Irregularly Irregular Gastrointestinal: Normal Bowel Sounds, Non Tender, Soft Extremity: Normal Capillary Refill, No Calf Tenderness Neurologic/Psychiatric: Alert, Oriented x3, Normal Mood/Affect Skin: Normal Color, Warm/Dry Results Results/Procedures Labs Laboratory Tests 06/04/18 03:36 06/05/18 00:30 Patient resulted labs reviewed. Assessment/Plan Admission Diagnosis Acutely decompensated heart failure Admission Status: Inpatient Order (span 2 midnights) Reason for Inpatient Admission: On dobutamine, needs cardiology and pulmonology evaluation Diagnosis/Problems Diagnosis/Problems (1) Heart failure Status: Acute Assessment & Plan: EF 10% from roughly 1.5 years ago Cardiology consulted, appreciate recs Continue low dose lasix as able for BP On dobutamine Echo ordered Qualifiers: Heart failure type: systolic Heart failure chronicity: acute on chronic Qualified Codes: I50.23 - Acute on chronic systolic (congestive) heart failure (2) Pleural effusion Status: Acute Assessment & Plan: left sided likely due to heart failure Consider thoracentesis Dr Pettit consulted, appreciate recs (3) CAD (coronary artery disease) Status: Chronic Assessment & Plan: s/p CABG Cardiology consulted, appreciate recs Qualifiers: Coronary Disease-Associated Artery/Lesion type: bypass graft [place] vs. transplanted heart: [place] heart Associated angina: without angina Qualified Codes: I25.810 - Atherosclerosis of coronary artery bypass graft(s) without angina pectoris (4) Atrial fibrillation Status: Chronic Assessment & Plan: Currently in a-fib per telemetry Rate controlled Trend Qualifiers: Atrial fibrillation type: chronic Qualified Codes: I48.2 - Chronic atrial fibrillation (5) Essential (primary) hypertension Assessment & Plan: hold home meds for hypotension (6) Counseling regarding end of life decision making Assessment & Plan: Discussed patient's current medical situation with patient and He requests everything being done until his heart stops and if his heart stops to allow him to naturally DNR ordered place Discussed with patient that if he wants "everything done" until his heart stops it is important for him to be compliant with needed testing here to which he agrees Will try to get labs done later in the morning tomorrow Will continue ICU level care at this time due to dobutamine gtt Palliative care consult placed Clinical Quality Measures DVT/VTE Risk/Contraindication: Risk Factor Score Per Nursin RFS Level Per Nursing on Admit: 4+=Very High MARKOS COLINDRES MD Jun 03, 2018 11:06
--- NOTE | 2018-06-03 11:24 | Diagnostic Imaging Report ---
INDICATION: Congestive heart failure. COMPARISON: 09/27/2016. FINDINGS: Cardiomegaly is present with central vascular indistinctness and airspace opacities. Large left pleural effusion present. No pneumothorax. Stable left pectoral transvenous dual-chamber pacemaker/ICD. Impression: 1. Worsening of congestive heart failure, now with pulmonary edema and large left pleural effusion. Dictated by: Dictated on workstation # [id number]
--- NOTE | 2018-06-03 11:30 | NUR ---
Dr. Mayes notified that pt BP is not increasing on the doputamine drip. Verbal order to turn the drip up to 7.5mcg/kg/min per Dr. Mayes.
--- NOTE | 2018-06-03 12:00 | NUR ---
Pastoral care visit with at pts bedside, she shared much of their story of sixty six years of marriage, told of work and life history in [facility] and their limited support and no latter-day support. I offered support and prayer and also assisted her in ordering food for the patient.
--- NOTE | 2018-06-03 13:38 | NUR ---
PALLIATIVE CARE RN and Dr. Colindres visited with patient with present to go over his severity of illness and discuss POC options. Dr. Colindres spoke with them both about DNR status. Patient was agreeable to be DNR after doctor explained how sick his heart is. He still wants to try to get better. This RN pulled the aside and offered her support. Explained how the next few days would play out. She has no other form of support..they have a son who is disabled. PC RN will follow with support.
--- NOTE | 2018-06-03 14:15 | NUR ---
Pastoral Care Visit.
[2018-06-04] VITALS (24 sets, daily range): BP systolic 72–143; BP diastolic 55–83
[2018-06-04 03:47] LABS: BASOPHILS # (AUTO) 0.1 10^3/uL (0.0-0.1); BASOPHILS % (AUTO) 1 % (0-10); EOSINOPHILS # (AUTO) 0.2 10^3/uL (0.0-0.3); EOSINOPHILS % (AUTO) 1 % (0-10); HEMATOCRIT 42 % (40-54); HEMOGLOBIN 13.5 G/DL (13.3-17.7); LYMPHOCYTES # (AUTO) 1.9 X 10^3 (1.0-4.0); LYMPHOCYTES % (AUTO) 17 % (12-44); MEAN CORPUSCULAR HEMOGLOBIN 31 PG (25-34); MEAN CORPUSCULAR HGB CONC 33 G/DL (32-36); MEAN CORPUSCULAR VOLUME 95 FL (80-99); MEAN PLATELET VOLUME 10.2 FL (7.4-10.4); MONOCYTES # (AUTO) 1.1 X 10^3 (0.0-1.0); MONOCYTES % (AUTO) 10 % (0-12); NEUTROPHILS # (AUTO) 8.1 X 10^3 (1.8-7.8); NEUTROPHILS % (AUTO) 71 % (42-75); RED BLOOD COUNT 4.39 10^6/uL (4.35-5.85); RED CELL DISTRIBUTION WIDTH 16.4 % (10.0-14.5); WHITE BLOOD COUNT 11.4 10^3/uL (4.3-11.0)
[2018-06-04] MEDS: DOBUTamine DRIP 250 ML IV SCH ×2 (03:54→22:38)
[2018-06-04 03:59] LABS: PLATELET COUNT 1182 10^3/uL (130-400)
[2018-06-04 04:17] LABS: ALANINE AMINOTRANSFERASE 7 U/L (0-55); ALBUMIN 2.8 GM/DL (3.2-4.5); ALKALINE PHOSPHATASE 97 U/L (40-136); BILIRUBIN,TOTAL 1.5 MG/DL (0.1-1.0); BUN/CREATININE RATIO 18; CALCIUM 9.1 MG/DL (8.5-10.1); CARBON DIOXIDE 30 MMOL/L (21-32); CHLORIDE 100 MMOL/L (98-107); CREATININE SERUM 0.96 MG/DL (0.60-1.30); GFR ESTIMATED > 60; GLUCOSE 104 MG/DL (70-105); MAGNESIUM 1.9 MG/DL (1.8-2.4); PHOSPHORUS 3.1 MG/DL (2.3-4.7); POTASSIUM 3.5 MMOL/L (3.6-5.0); SODIUM 139 MMOL/L (135-145); TOTAL PROTEIN 6.4 GM/DL (6.4-8.2)
[2018-06-04] MEDS ORDERED: HALOPERIDOL 5 MG/ML (HALDOL) AMP IV PRN (05:30)
[2018-06-04] MEDS ORDERED: HALOPERIDOL 5 MG/ML (HALDOL) AMP ONE (05:38)
--- NOTE | 2018-06-04 05:39 | Pulmonary Progress Note ---
Subjective Time Seen by a Provider: 05:43 Subjective/Events-last exam PT is agitated yelling out. Sepsis Event Evaluation Height, Weight, BMI Height: 6'2.00" Weight: 151lbs. 8.0oz. 68.994563tf; 19.4 BMI Method: Exam Exam Vital Signs Date Time Temp Pulse Resp B/P (MAP) Pulse Ox O2 Delivery O2 Flow Rate FiO2 06/04/18 05:00 96 16 97/60 (72) 95 Nasal Cannula 5.00 06/04/18 04:00 92 Nasal Cannula 5.00 06/04/18 04:00 100 29 90/55 (67) 94 Nasal Cannula 5.00 06/04/18 03:54 93/69 06/04/18 03:00 99 17 90/62 (71) 91 Nasal Cannula 5.00 06/04/18 02:00 99 18 88/55 (66) 94 Nasal Cannula 5.00 06/04/18 01:00 120 06/04/18 01:00 91 21 97/62 (74) 97 Nasal Cannula 5.00 06/04/18 00:00 92 Nasal Cannula 5.00 06/04/18 00:00 89 27 72/56 (61) 91 Nasal Cannula 5.00 06/03/18 23:50 Nasal Cannula 5.00 06/03/18 23:21 97.1 Nasal Cannula 5.00 06/03/18 23:00 88 17 92/53 (66) 90 Nasal Cannula 4.00 06/03/18 22:00 91 23 82/54 (63) 90 Nasal Cannula 4.00 06/03/18 21:00 94 28 82/56 (65) 93 Nasal Cannula 4.00 06/03/18 20:00 96 32 90/54 (66) 93 Nasal Cannula 4.00 06/03/18 20:00 92 Nasal Cannula 4.00 06/03/18 19:52 96.8 Nasal Cannula 4.00 06/03/18 19:00 100 35 89/75 (80) 95 Nasal Cannula 4.00 06/03/18 19:00 100 06/03/18 18:50 97.9 86 35 83/58 92 Nasal Cannula 4.00 06/03/18 18:00 89 35 88/49 (62) 94 Nasal Cannula 4.00 06/03/18 17:00 92 23 84/57 (66) 94 Nasal Cannula 4.00 06/03/18 16:00 89 38 84/54 (64) 94 Nasal Cannula 4.00 06/03/18 16:00 95 Nasal Cannula 4.00 06/03/18 15:00 92 18 85/54 (64) 95 Nasal Cannula 4.00 06/03/18 14:00 83 21 91/54 (66) 94 Nasal Cannula 4.00 06/03/18 13:03 87 06/03/18 13:00 90 20 88/60 (69) 93 Nasal Cannula 4.00 06/03/18 12:15 87 20 86/54 (65) 95 Nasal Cannula 4.00 06/03/18 12:00 89 21 84/55 (65) 95 Nasal Cannula 4.00 06/03/18 11:30 84/54 06/03/18 11:00 97.9 06/03/18 11:00 87 14 94/56 (69) 96 Nasal Cannula 4.00 06/03/18 11:00 95 Nasal Cannula 4.00 06/03/18 10:15 87 87/50 96 Nasal Cannula 4.00 06/03/18 10:00 81 19 87/50 (62) 96 Nasal Cannula 4.00 06/03/18 09:00 84 18 92/58 (69) 96 Nasal Cannula 4.00 06/03/18 08:00 79 19 87/53 (64) 95 Nasal Cannula 4.00 06/03/18 08:00 98.2 06/03/18 07:41 97 Nasal Cannula 4.00 06/03/18 07:00 83 06/03/18 07:00 85 17 89/68 (75) 95 Nasal Cannula 4.00 06/03/18 06:04 75 17 90/59 (69) 96 Nasal Cannula 4.00 I & O 06/04/18 07:00 Intake Total 775 ml Output Total 785 ml Balance -10 ml Height & Weight Height: 6'2.00" Weight: 151lbs. 8.0oz. 68.157445rq; 19.4 BMI Method: General Appearance: Anxious, Chronically ill, Moderate Distress, Thin HEENT: Moist Mucous Membranes; No Scleral Icterus (L), No Scleral Icterus (R) Neck: Non Tender, Supple Respiratory: Decreased Breath Sounds (on left) Cardiovascular: No Murmur, Irregularly Irregular Capillary Refill: Less Than 3 Seconds Gastrointestinal: normal bowel sounds, non tender, soft Extremity: Normal Capillary Refill, No Calf Tenderness Neurologic/Psychiatric: Alert, Oriented x3, Normal Mood/Affect Skin: Normal Color, Warm/Dry Lymphatic: No Adenopathy Results Lab Laboratory Tests 06/03/18 09:15 06/04/18 03:36 Assessment/Plan Assessment/Plan Severe cardiomyopathy with EF of 10% -Lasix 20mg BID currently -Currently on Dobutamine gtt -Echo Hypotension -Monitor Psychosis/dementia -PT has been yelling out all night -Will start Haldol PRN and Risperadol 0.5mg BID -Morphine 1-2 PRN Q4 Pleural effusion with hypoxemia -Lasix -Oxygen -Continue to monitor CAD hx of CABG Afib Overall prognosis is poor. Hospice is consulted for education. Currently a DNR. YANA BARAHONA DO Jun 04, 2018 05:39
[2018-06-04] MEDS: CATHETER FLUSH 10 ML SYR IV SCH ×3 (05:59→22:00)
[2018-06-04] MEDS: FUROSEMIDE 40 MG/4 ML INJ (LASIX) IV SCH ×2 (06:01→15:34)
--- NOTE | 2018-06-04 07:21 | Diagnostic Imaging Report ---
INDICATION: Congestive heart failure. Portable upright AP view of the chest is obtained. FINDINGS: Since study one day earlier, extensive bilateral airspace persists without significant change. There is moderate to large amount of left pleural fluid. No pneumothorax or other change is identified. IMPRESSION: Bilateral airspace disease which may be due to edema or superimposed pneumonia as well as left pleural fluid have not significantly changed. Dictated by: Dictated on workstation # [id number]
--- NOTE | 2018-06-04 07:22 | Progress Note-Hospitalist ---
Subjective HPI/CC On Admission Date Seen by Provider: Jun 04, 2018 Time Seen by Provider: 07:16 Pt is an 87yoCM with a PMH of ischemic cardiomyopathy s/p AICD placement, HTN, a fib, CAD s/p CABG who presented to outside ER due to hypotension. He is unable to tell me most of his history so history is from the ER physician who saw him yesterday. Reportedly a home health care nurse same him on 05/30 and found him to have low blood pressure. He was sent to the ER for fluids per his notereader and stopped his lasix but demanded they be done within 30m. This was unable to be arranged and so he left AMA at that time. Yesterday a home health nurse saw him again and he remained hypotensive so he was again sent to the ER for evaluation. He was found to be hypotensive with SBP 90-80s and chest x-ray revealed a large left pleural effusion. He was transferred here for acutely decompensated heart failure for cardiology and pulmonology consultation. This morning he refused pulmonology evaluation, labs, and XR. Her does not remember this. Subjective/Events-last exam Pt reports feeling great. Sitting up in bed. No complaints. Objective Exam Vital Signs Vital Signs Date Time Temp Pulse Resp B/P (MAP) Pulse Ox O2 Delivery O2 Flow Rate FiO2 06/05/18 14:00 71 18 97 Nasal Cannula 5.00 06/05/18 04:00 97.8 Capillary Refill : Less Than 3 Seconds General Appearance: Chronically ill, Thin Respiratory: No Accessory Muscle Use Cardiovascular: No Murmur, Irregularly Irregular Gastrointestinal: Normal Bowel Sounds, Non Tender, Soft Neurologic/Psychiatric: Alert (pleasant, oriented to self and place) Results/Procedures Lab Laboratory Tests 06/05/18 00:30 Patient resulted labs reviewed. Assessment/Plan Assessment and Plan Assess & Plan/Chief Complaint Cardiogenic shock Diagnosis/Problems Diagnosis/Problems (1) Cardiogenic shock Status: Acute Assessment & Plan: Currently on dobutamine BP mildly better UOP marginal Cardiology consulted, appreciate recs (2) Heart failure Status: Acute Assessment & Plan: EF 10% from roughly 1.5 years ago Cardiology consulted, appreciate recs Continue low dose lasix as able Echo shows EF 10% Qualifiers: Heart failure type: systolic Heart failure chronicity: acute on chronic Qualified Codes: I50.23 - Acute on chronic systolic (congestive) heart failure (3) Pleural effusion Status: Acute Assessment & Plan: left sided likely due to heart failure Consider thoracentesis Dr Pettit consulted, appreciate recs (4) CAD (coronary artery disease) Status: Chronic Assessment & Plan: s/p CABG Cardiology consulted, appreciate recs Qualifiers: Coronary Disease-Associated Artery/Lesion type: bypass graft [place] vs. transplanted heart: [place] heart Associated angina: without angina Qualified Codes: I25.810 - Atherosclerosis of coronary artery bypass graft(s) without angina pectoris (5) Atrial fibrillation Status: Chronic Assessment & Plan: Currently in a-fib per telemetry Rate controlled Trend Will likely need anticoagulation Qualifiers: Atrial fibrillation type: chronic Qualified Codes: I48.2 - Chronic atrial fibrillation (6) Essential (primary) hypertension Assessment & Plan: hold home meds for hypotension (7) Counseling regarding end of life decision making Assessment & Plan: Discussed patient's current medical situation with patient and on 06/03 He requests everything being done until his heart stops and if his heart stops to allow him to naturally DNR ordered place Will continue ICU level care at this time due to dobutamine gtt Palliative care consult placed, appreciate assistance Clinical Quality Measures DVT/VTE Risk/Contraindication: Risk Factor Score Per Nursin RFS Level Per Nursing on Admit: 4+=Very High MARKOS NAGEL MD Jun 04, 2018 07:22
[2018-06-04] MEDS ORDERED: KCL 20 MEQ TAB (K-DUR) PO ONE (07:53)
[2018-06-04] MEDS ORDERED: MAGNESIUM 1 GM/100 ML IVPB 200 ML IV ONE (07:54)
[2018-06-04] MEDS: KCL 20 MEQ TAB (K-DUR) PO SCH (08:01)
[2018-06-04] MEDS: risperiDONE 0.25 MG (RisperDAL) TAB PO SCH ×2 (08:02→22:00)
[2018-06-04] MEDS: MAGNESIUM 1 GM/100 ML IVPB 100 ML IV SCH ×2 (08:03→08:18)
--- NOTE | 2018-06-04 10:09 | Cardiology Progress Note ---
Subjective Date Seen by Provider: Jun 04, 2018 Time Seen by Provider: 10:07 Subjective/Events-last exam patient is laying down in bed, feeling better today, still having shortness of breath. Borderline hypotensive, had few episode of hypotension last night Review of Systems General: No Chills, No Night Sweats; Fatigue, Malaise; No Appetite, No Other HEENT: No Head Aches, No Visual Changes, No Eye Pain, No Ear Pain, No Dysphasia , No Sinus Congestion, No Post Nasal Drip, No Sore Throat, No Other Pulmonary: Dyspnea; No Cough, No Pleuritic Chest Pain, No Other Cardiovascular: Edema; No: Chest Pain, Palpitations, Orthopnea, Paroxysmal Noc. Dyspnea, Lt Headedness, Other Objective-Cardiology Exam Last Set of Vital Signs Vital Signs 06/04/18 06/04/18 06/04/18 06/04/18 06:00 07:00 07:58 08:00 Temp 97.4 Pulse 110 Resp 28 B/P (MAP) 102/60 (74) Pulse Ox 95 O2 Delivery Nasal Cannula O2 Flow Rate 5.00 Capillary Refill : Less Than 3 Seconds I&O Intake and Output 06/04/18 00:00 Intake Total 525 ml Output Total 1035 ml Balance -510 ml Intake Oral 525 ml Output Urine Total 1035 ml General: Alert, Oriented X3, Cooperative, Mild Distress HEENT: Atraumatic, PERRLA Neck: Supple, No JVD, No Thyromegaly Lungs: Normal Air Movement, Other (bilateral wet rales) Heart: Normal S1, Normal S2, No Murmurs, Other (tachycardia, irregular, S3 present) Abdomen: Normal Bowel Sounds, Soft, No Tenderness, No Hepatosplenomegaly, No Masses Extremities: No Clubbing, No Cyanosis, Normal Pulses, No Tenderness/Swelling, Other (peripheral edema) Skin: No Rashes, No Breakdown, No Significant Lesion Neuro: Normal Speech, Normal Tone, Sensation Intact Psych/Mental Status: Mental Status NL, Mood NL Results Lab Laboratory Tests 06/04/18 03:36 A/P-Cardiology Admission Diagnosis Hypotensive shock Congestive heart failure, chronic compensated left ventricular systolic dysfunction, ischemic cardiomyopathy Coronary artery disease Hyperlipidemia Assessment/Plan Hypotensive shock secondary to cardiogenic shock, responded to dobutamine drip, will start weaning off at this time. Congestive heart failure, acute left ventricular systolic dysfunction, ejection fraction 10 percent, ischemic cardiomyopathy, cannot tolerate beta blockers, ALBERT inhibitor and/or ARB due to hypotension. I am using low-dose diuretics. He has been on dobutamine drip, start tapering down and evaluate tolerance and response. Coronary artery disease history of CABG, cardiac catheterization was carried out in September 2016 showing patent AHMADI to LAD and vein graft to the right coronary artery, 60 percent stenosis in the vein graft, small vessel disease, nonobstructive disease, conservative management History of permanent pacemaker/ICD, good sensing and capture activity. Had history of multiple episodes of ventricular tachycardia required pacing. History of GI bleed, continue to monitor H&H. Patient was maintained on Xarelto, probably underlying atrial fibrillation, no episodes of atrial fibrillation noted, had episodes of atrial tachycardia on the pacemaker interrogation. Hyperlipidemia, evaluate lipid profile Confusion, dementia, unknown duration, managed by primary care physician History of gallstones, appendectomy, prostatectomy Clinical Quality Measures DVT/VTE Risk/Contraindication: Risk Factor Score Per Nursin RFS Level Per Nursing on Admit: 4+=Very High NIC LOVE MD Jun 04, 2018 10:09
[2018-06-04] MEDS: HALOPERIDOL 5 MG/ML (HALDOL) AMP IV PRN ×2 (15:34→23:45)
[2018-06-04] MEDS: morphine INJ 4 MG/ML 1 ML (VIAL/SYRINGE) IVP PRN ×2 (17:15→22:38)
--- NOTE | 2018-06-04 23:35 | NUR ---
Notified EICU that pt is having runs of VTach. Addendum: 06/05/18 at 0008 by JAYSHREE GONSALES RN Notified EICU that pt is having runs of HR into 130's. New order received to draw labs now.
[2018-06-05] VITALS (14 sets, daily range): BP systolic 79–123; BP diastolic 48–87
[2018-06-05 00:36] LABS: BASOPHILS # (AUTO) 0.1 10^3/uL (0.0-0.1); BASOPHILS % (AUTO) 0 % (0-10); EOSINOPHILS # (AUTO) 0.2 10^3/uL (0.0-0.3); EOSINOPHILS % (AUTO) 2 % (0-10); HEMATOCRIT 43 % (40-54); HEMOGLOBIN 14.3 G/DL (13.3-17.7); LYMPHOCYTES # (AUTO) 1.7 X 10^3 (1.0-4.0); LYMPHOCYTES % (AUTO) 13 % (12-44); MEAN CORPUSCULAR HEMOGLOBIN 31 PG (25-34); MEAN CORPUSCULAR HGB CONC 33 G/DL (32-36); MEAN CORPUSCULAR VOLUME 94 FL (80-99); MEAN PLATELET VOLUME 10.1 FL (7.4-10.4); MONOCYTES # (AUTO) 1.5 X 10^3 (0.0-1.0); MONOCYTES % (AUTO) 11 % (0-12); NEUTROPHILS # (AUTO) 10.2 X 10^3 (1.8-7.8); NEUTROPHILS % (AUTO) 75 % (42-75); RED BLOOD COUNT 4.57 10^6/uL (4.35-5.85); RED CELL DISTRIBUTION WIDTH 16.4 % (10.0-14.5); WHITE BLOOD COUNT 13.7 10^3/uL (4.3-11.0)
[2018-06-05 00:52] LABS: PLATELET COUNT 1101 10^3/uL (130-400)
[2018-06-05 00:56] LABS: BUN/CREATININE RATIO 16; CALCIUM 9.2 MG/DL (8.5-10.1); CARBON DIOXIDE 29 MMOL/L (21-32); CHLORIDE 99 MMOL/L (98-107); CREATININE SERUM 1.05 MG/DL (0.60-1.30); GFR ESTIMATED > 60; GLUCOSE 108 MG/DL (70-105); MAGNESIUM 2.3 MG/DL (1.8-2.4); PHOSPHORUS 3.3 MG/DL (2.3-4.7); POTASSIUM 4.2 MMOL/L (3.6-5.0); SODIUM 139 MMOL/L (135-145)
[2018-06-05] MEDS: KCL 20 MEQ TAB (K-DUR) PO SCH (01:14)
--- NOTE | 2018-06-05 05:20 | Pulmonary Progress Note ---
Subjective Time Seen by a Provider: 05:19 Subjective/Events-last exam PT is not as agitated today. Sepsis Event Evaluation Height, Weight, BMI Height: 6'2.00" Weight: 152lbs. 2.0oz. 69.749257mi; 19.4 BMI Method: Exam Exam Vital Signs Date Time Temp Pulse Resp B/P (MAP) Pulse Ox O2 Delivery O2 Flow Rate FiO2 06/05/18 04:00 97.8 06/05/18 04:00 102 13 103/77 (86) 94 Nasal Cannula 5.00 06/05/18 04:00 93 Nasal Cannula 5.00 06/05/18 03:00 98 12 106/63 (77) 94 Nasal Cannula 5.00 06/05/18 02:00 104 13 117/56 (76) 94 Nasal Cannula 5.00 06/05/18 01:00 105 06/05/18 01:00 97 13 111/59 (76) 93 Nasal Cannula 5.00 06/05/18 00:00 98.0 06/05/18 00:00 105 13 108/79 (89) 93 Nasal Cannula 5.00 06/05/18 00:00 93 Nasal Cannula 5.00 06/04/18 23:00 100 17 123/72 (89) 91 Nasal Cannula 5.00 06/04/18 22:38 96.7 80 14 115/72 93 Nasal Cannula 5.00 06/04/18 22:00 93 Nasal Cannula 5.00 06/04/18 22:00 95 16 143/83 (103) 91 Nasal Cannula 5.00 06/04/18 21:00 80 14 115/72 (86) 93 Nasal Cannula 5.00 06/04/18 20:00 95 Nasal Cannula 5.00 06/04/18 20:00 90 14 121/66 (84) 95 Nasal Cannula 5.00 06/04/18 19:00 87 14 130/63 (85) 94 Nasal Cannula 5.00 06/04/18 19:00 96 06/04/18 19:00 96.7 06/04/18 18:00 94 18 95/74 (81) 93 Nasal Cannula 5.00 06/04/18 17:00 114 21 119/76 (90) 93 Nasal Cannula 5.00 06/04/18 16:00 95 Nasal Cannula 5.00 06/04/18 16:00 98.6 114 19 114/74 (87) 97 Nasal Cannula 5.00 06/04/18 15:00 96 16 113/69 (84) 96 Nasal Cannula 5.00 06/04/18 14:00 91 21 84/58 (67) 97 Nasal Cannula 5.00 06/04/18 13:00 90 06/04/18 13:00 90 16 86/61 (69) 97 Nasal Cannula 5.00 06/04/18 12:00 98.2 06/04/18 12:00 95 Nasal Cannula 5.00 06/04/18 12:00 87 17 86/58 (67) 97 Nasal Cannula 5.00 06/04/18 11:00 98 27 89/69 (76) 97 Nasal Cannula 5.00 06/04/18 10:00 99 21 88/62 (71) 97 Nasal Cannula 5.00 06/04/18 09:00 105 25 88/55 (66) 97 Nasal Cannula 5.00 06/04/18 08:00 95 Nasal Cannula 5.00 06/04/18 08:00 103 10 93/64 (74) 97 Nasal Cannula 5.00 06/04/18 07:58 97.4 06/04/18 07:52 Nasal Cannula 6.00 06/04/18 07:00 110 06/04/18 07:00 106 20 94/59 (71) 97 Nasal Cannula 5.00 06/04/18 06:00 106 28 102/60 (74) 92 Nasal Cannula 5.00 I & O 06/05/18 07:00 Intake Total 660 ml Output Total 1325 ml Balance -665 ml Height & Weight Height: 6'2.00" Weight: 152lbs. 2.0oz. 69.621833ts; 19.4 BMI Method: General Appearance: No Apparent Distress, Chronically ill, Thin HEENT: Moist Mucous Membranes Neck: Non Tender, Supple Respiratory: No Accessory Muscle Use Cardiovascular: No Murmur, Irregularly Irregular Capillary Refill: Less Than 3 Seconds Gastrointestinal: normal bowel sounds, non tender, soft Extremity: Normal Capillary Refill, No Calf Tenderness Neurologic/Psychiatric: Alert (pleasant, oriented to self and place) Skin: Normal Color, Warm/Dry Lymphatic: No Adenopathy Results Lab Laboratory Tests 06/03/18 09:15 06/04/18 03:36 1/6/19 00:30 Assessment/Plan Assessment/Plan Severe cardiomyopathy with EF of 10% -Lasix 20mg BID currently -Off Dobutamine gtt -Echo Pleural effusion with hypoxemia -Lasix -Oxygen -Continue to monitor -Will do thoracentesis if pt is in agreement. Hypotension -Monitor Psychosis/dementia -PT has been yelling out all night -Haldol PRN and Risperadol 0.5mg BID -Morphine 1-2 PRN Q4 CAD hx of CABG Afib Overall prognosis is poor. Hospice is consulted for education. Currently a DNR. YANA BARAHONA DO Jun 05, 2018 05:19
[2018-06-05] MEDS ORDERED: MAGNESIUM 1 GM/100 ML IVPB 100 ML IV SCH (06:00)
[2018-06-05] MEDS ORDERED: POTASSIUM CL 10MEQ/50ML IVPB 50 ML IV SCH (06:00)
[2018-06-05] MEDS: HALOPERIDOL 5 MG/ML (HALDOL) AMP IV PRN (06:12)
[2018-06-05] MEDS: CATHETER FLUSH 10 ML SYR IV SCH (06:12)
[2018-06-05] MEDS: FUROSEMIDE 40 MG/4 ML INJ (LASIX) IV SCH (06:13)
--- NOTE | 2018-06-05 07:00 | NUR ---
Notified EICU pt heart rate into 150's
[2018-06-05] MEDS ORDERED: meTOprolol 5 MG/5 ML (LOPRESSOR) VIAL ONE (07:07)
[2018-06-05] MEDS: morphine INJ 4 MG/ML 1 ML (VIAL/SYRINGE) IVP PRN ×2 (07:19→15:24)
[2018-06-05 07:23] LABS: ABG BASE EXCESS 5.1 MMOL/L (-2.5-2.5); ABG OXYGEN SATURATION 93 % (94-100); ABG PCO2 40 MMHG (35-45); ABG PH 7.47 (7.37-7.43); ABG PO2 62 MMHG (79-93); ALLENS TEST YES-POS; INSPIRED O2 5L; PATIENT TEMP 98.2; VENTILATOR NO
--- NOTE | 2018-06-05 08:52 | Cardiology Progress Note ---
Subjective Date Seen by Provider: Jun 05, 2018 Time Seen by Provider: 08:50 Subjective/Events-last exam patient is lethargic, laying down in bed, no change, was tachycardic and given IV beta blockers which made his hypotension worse. Review of Systems General: No Chills, No Night Sweats; Fatigue, Malaise; No Appetite, No Other HEENT: No Head Aches, No Visual Changes, No Eye Pain, No Ear Pain, No Dysphasia , No Sinus Congestion, No Post Nasal Drip, No Sore Throat, No Other Pulmonary: Dyspnea; No Cough, No Pleuritic Chest Pain, No Other Cardiovascular: Edema; No: Chest Pain, Palpitations, Orthopnea, Paroxysmal Noc. Dyspnea, Lt Headedness, Other Objective-Cardiology Exam Last Set of Vital Signs Vital Signs 06/05/18 06/05/18 06:00 07:28 Pulse 111 Resp 14 B/P (MAP) 103/48 (66) Pulse Ox 92 O2 Delivery Nasal Cannula O2 Flow Rate 6.00 Capillary Refill : Less Than 3 Seconds I&O Intake and Output 06/05/18 00:00 Intake Total 1060 ml Output Total 1400 ml Balance -340 ml Intake Oral 610 ml IV Total 450 ml Output Urine Total 1400 ml General: Alert, Cooperative, Moderate Distress HEENT: Atraumatic, PERRLA Neck: Supple, No JVD, No Thyromegaly Lungs: Normal Air Movement, Other (bilateral wet rales) Heart: Normal S1, Normal S2, No Murmurs, Other (tachycardia, irregular, S3 present) Abdomen: Normal Bowel Sounds, Soft, No Tenderness, No Hepatosplenomegaly, No Masses Extremities: No Clubbing, No Cyanosis, Normal Pulses, No Tenderness/Swelling, Other (peripheral edema) Skin: No Rashes, No Breakdown, No Significant Lesion Neuro: Normal Speech, Normal Tone, Sensation Intact Psych/Mental Status: Mental Status NL, Mood NL Results Lab Laboratory Tests 06/05/18 00:30 A/P-Cardiology Admission Diagnosis Hypotensive shock Congestive heart failure, chronic compensated left ventricular systolic dysfunction, ischemic cardiomyopathy Coronary artery disease Hyperlipidemia Assessment/Plan Hypotensive shock secondary to cardiogenic shock, unable to tolerate dobutamine due to tachycardia, unable to tolerate beta hollie due to hypotension, I will try digoxin and evaluate tolerance and response. Congestive heart failure, acute left ventricular systolic dysfunction, ejection fraction 10 percent, ischemic cardiomyopathy, cannot tolerate beta blockers, ALBERT inhibitor and/or ARB due to hypotension. starting digoxin at this time. I will evaluate tolerance and response Coronary artery disease history of CABG, cardiac catheterization was carried out in September 2016 showing patent AHMADI to LAD and vein graft to the right coronary artery, 60 percent stenosis in the vein graft, small vessel disease, nonobstructive disease, conservative management History of permanent pacemaker/ICD, good sensing and capture activity. Had history of multiple episodes of ventricular tachycardia required pacing. History of GI bleed, continue to monitor H&H. Patient was maintained on Xarelto, probably underlying atrial fibrillation, no episodes of atrial fibrillation noted, had episodes of atrial tachycardia on the pacemaker interrogation. Hyperlipidemia, evaluate lipid profile Confusion, dementia, unknown duration, managed by primary care physician History of gallstones, appendectomy, prostatectomy Patient is DO NOT RESUSCITATE Overall poor prognosis Clinical Quality Measures DVT/VTE Risk/Contraindication: Risk Factor Score Per Nursin RFS Level Per Nursing on Admit: 4+=Very High NIC LOVE MD Jun 05, 2018 08:52
[2018-06-05] MEDS ORDERED: DIGOXIN 0.25 MG/ML (LANOXIN) 2 ML AMP IV NR (09:00)
--- NOTE | 2018-06-05 09:10 | Progress Note-Hospitalist ---
Subjective HPI/CC On Admission Date Seen by Provider: Jun 05, 2018 Time Seen by Provider: 09:03 Pt is an 87yoCM with a PMH of ischemic cardiomyopathy s/p AICD placement, HTN, a fib, CAD s/p CABG who presented to outside ER due to hypotension. He is unable to tell me most of his history so history is from the ER physician who saw him yesterday. Reportedly a home health care nurse same him on 05/30 and found him to have low blood pressure. He was sent to the ER for fluids per his cracker off and stopped his lasix but demanded they be done within 30m. This was unable to be arranged and so he left AMA at that time. Yesterday a home health nurse saw him again and he remained hypotensive so he was again sent to the ER for evaluation. He was found to be hypotensive with SBP 90-80s and chest x-ray revealed a large left pleural effusion. He was transferred here for acutely decompensated heart failure for cardiology and pulmonology consultation. This morning he refused pulmonology evaluation, labs, and XR. Her does not remember this. Subjective/Events-last exam Pt reports feeling horribly. More confused than yesterday. Discussed with on the phone who is on her way about prognosis. Objective Exam Vital Signs Vital Signs Date Time Temp Pulse Resp B/P (MAP) Pulse Ox O2 Delivery O2 Flow Rate FiO2 06/05/18 14:00 71 18 97 Nasal Cannula 5.00 06/05/18 04:00 97.8 Capillary Refill : Less Than 3 Seconds General Appearance: Chronically ill, Cachetic Respiratory: No Respiratory Distress, Decreased Breath Sounds Cardiovascular: No Murmur, Irregularly Irregular Gastrointestinal: Normal Bowel Sounds, Non Tender, Soft Extremity: Pedal Edema Neurologic/Psychiatric: Alert, Other (confused) Results/Procedures Lab Laboratory Tests 06/05/18 00:30 Patient resulted labs reviewed. Assessment/Plan Assessment and Plan Assess & Plan/Chief Complaint Cardiogenic shock Diagnosis/Problems Diagnosis/Problems (1) Cardiogenic shock Status: Acute Assessment & Plan: Trialing off dobutamine Bp remains lows Digoxin ordered by Dr Mayes Cardiology consulted, appreciate recs Consider transition to comfort measures (2) Heart failure Status: Acute Assessment & Plan: EF 10% on recent echo Cardiology consulted, appreciate recs Continue low dose lasix as able Echo shows EF 10% Qualifiers: Heart failure type: systolic Heart failure chronicity: acute on chronic Qualified Codes: I50.23 - Acute on chronic systolic (congestive) heart failure (3) Pleural effusion Status: Acute Assessment & Plan: left sided likely due to heart failure Consider thoracentesis if does not transition to comfort measures and still wants aggressive therapy Dr Pettit consulted, appreciate recs (4) CAD (coronary artery disease) Status: Chronic Assessment & Plan: s/p CABG Cardiology consulted, appreciate recs Qualifiers: Coronary Disease-Associated Artery/Lesion type: bypass graft [place] vs. transplanted heart: [place] heart Associated angina: without angina Qualified Codes: I25.810 - Atherosclerosis of coronary artery bypass graft(s) without angina pectoris (5) Atrial fibrillation Status: Chronic Assessment & Plan: Currently in a-fib per telemetry Rate up to 150s this AM and received lopressor Trend Will likely need anticoagulation Qualifiers: Atrial fibrillation type: chronic Qualified Codes: I48.2 - Chronic atrial fibrillation (6) Essential (primary) hypertension Assessment & Plan: hold home meds for hypotension (7) Counseling regarding end of life decision making Assessment & Plan: Discussed patient's current medical situation with patient and on 06/03 He requested everything being done until his heart stops and if his heart stops to allow him to naturally He is now stating he wants to go home but I am unsure if he has the capacity to make that decision right now I discussed with on the phone regarding poor prognosis and extreme measures that have already been exhausted without improvement, she is on her way at this time to continue conversation DNR ordered placed Palliative care consult placed, appreciate assistance Clinical Quality Measures End of Life/Advance Care Plan: Advance Care discuss with: patient, family member (s) End of Life Care: Comfort Measures Plan: clarifying prognosis, developed treatment plan Time spent on discussion(mins): 35 DVT/VTE Risk/Contraindication: Risk Factor Score Per Nursin RFS Level Per Nursing on Admit: 4+=Very High MARKOS NAGEL MD Jun 05, 2018 09:10
--- NOTE | 2018-06-05 09:55 | Diagnostic Imaging Report ---
INDICATION: Congestive heart failure. TECHNIQUE: Single view chest at 3:33 AM. CORRELATION STUDY: 06/04/2018 FINDINGS: Patient is poststernotomy. Left-sided pacemaker remains in place. Cardiac enlargement. There is continued presence for what appears to be pulmonary vascular congestion. Significant opacification throughout both lung ellis is present. The moderately large left pleural effusion appears to occupy approximately half the left hemithorax. A small right pleural effusion is present. Overall findings do appear to be adversely increased from prior study. IMPRESSION: 1. There appears to be increasing airspace disease, likely edema versus infiltrate throughout both lung ellis, left greater than right. Moderate left pleural effusion is also slightly increased in size with small right pleural effusion. Vasculature is largely obscured but appears to be increased, as well. Dictated by: Dictated on workstation # [id number]
[2018-06-05] MEDS: risperiDONE 0.25 MG (RisperDAL) TAB PO SCH (11:15)
[2018-06-05] MEDS: DOBUTamine DRIP 250 ML IV SCH (11:15)
[2018-06-05] MEDS ORDERED: GLYCOPYRROLATE 0.2 MG/ML (ROBINUL) 2 ML VIAL IV PRN (14:00)
[2018-06-05] MEDS: SCOPOLAMINE 1.5 MG (TRANSDERM-SCOP) PATCH TD NR (14:07)
[2018-06-05] MEDS ORDERED: DIGOXIN 0.125 MG (LANOXIN) TAB PO SCH (16:00)
[2018-06-05] MEDS: LORazepam INJ 2 MG/ML (ATIVAN) VIAL IVP PRN (17:30)
--- NOTE | 2018-06-05 17:42 | NUR ---
pt to room via icu bed. resting with eyes closed and no s/s of air hunger or pain. report given to Lety NIXON.
[2018-06-06] MEDS: morphine INJ 4 MG/ML 1 ML (VIAL/SYRINGE) IVP PRN (04:42)
[2018-06-06] MEDS: LORazepam INJ 2 MG/ML (ATIVAN) VIAL IVP PRN ×2 (04:43→15:43)
--- NOTE | 2018-06-06 07:31 | Pulmonary Progress Note ---
Sepsis Event Evaluation Height, Weight, BMI Height: 6'2.00" Weight: 156lbs. 2.0oz. [id number]; 19.4 BMI Method: Exam Exam Vital Signs Date Time Temp Pulse Resp B/P (MAP) Pulse Ox O2 Delivery O2 Flow Rate FiO2 06/06/18 06:49 Nasal Cannula 2.00 06/05/18 14:00 71 18 97 Nasal Cannula 5.00 06/05/18 13:00 77 16 123/75 (91) 100 Nasal Cannula 5.00 06/05/18 13:00 76 06/05/18 12:00 76 13 112/72 (85) 99 Nasal Cannula 5.00 06/05/18 12:00 100 Nasal Cannula 5.00 06/05/18 11:00 89 15 79/64 (69) 100 Nasal Cannula 5.00 06/05/18 10:00 96 16 86/70 (75) 94 Nasal Cannula 5.00 06/05/18 09:00 108 20 106/87 (93) 100 Nasal Cannula 5.00 06/05/18 08:00 99 Nasal Cannula 5.00 06/05/18 08:00 107 18 85/73 (77) 94 Nasal Cannula 5.00 06/05/18 07:28 Nasal Cannula 6.00 I & O 06/06/18 07:00 Intake Total 0 ml Output Total 315 ml Balance -315 ml Height & Weight Height: 6'2.00" Weight: 156lbs. 2.0oz. [id number]; 19.4 BMI Method: General Appearance: Chronically ill, Cachetic HEENT: Moist Mucous Membranes; No Scleral Icterus (L), No Scleral Icterus (R) Neck: Non Tender, Supple Respiratory: No Respiratory Distress, Decreased Breath Sounds Cardiovascular: No Murmur, Irregularly Irregular Capillary Refill: Less Than 3 Seconds Gastrointestinal: normal bowel sounds, non tender, soft Extremity: Pedal Edema Neurologic/Psychiatric: Alert, Other (confused) Skin: Normal Color, Warm/Dry Lymphatic: No Adenopathy Results Lab Laboratory Tests 06/05/18 00:30 Assessment/Plan Assessment/Plan Severe cardiomyopathy with EF of 10% Pleural effusion with hypoxemia Psychosis/dementia CAD hx of CABG Afib Pt is now comfort care only. I am going to sign off. Please call with any questions or concerns. YANA BARAHONA DO Jun 06, 2018 07:31
--- NOTE | 2018-06-06 09:05 | Cardiology Progress Note ---
Subjective Date Seen by Provider: Jun 06, 2018 Time Seen by Provider: 09:02 Subjective/Events-last exam patient is laying down in bed, sleeping. Not arousable. Sedated Objective-Cardiology Exam Last Set of Vital Signs Vital Signs 06/05/18 06/06/18 14:00 06:49 Pulse 71 Resp 18 Pulse Ox 97 O2 Delivery Nasal Cannula O2 Flow Rate 2.00 Capillary Refill : Less Than 3 Seconds I&O Intake and Output 06/06/18 00:00 Intake Total 0 ml Output Total 315 ml Balance -315 ml Intake Oral 0 ml Output Urine Total 315 ml General: Cooperative, Other (and sleeping) HEENT: Atraumatic Neck: Supple, No JVD, No Thyromegaly Lungs: Normal Air Movement, Other (bilateral wet rales) Heart: Normal S1, Normal S2, No Murmurs, Other (tachycardia, irregular, S3 present) Abdomen: Normal Bowel Sounds, Soft, No Tenderness, No Hepatosplenomegaly, No Masses Extremities: No Clubbing, No Cyanosis, Normal Pulses, No Tenderness/Swelling, Other (peripheral edema) Skin: No Rashes, No Breakdown, No Significant Lesion Neuro: Normal Speech, Normal Tone, Sensation Intact Psych/Mental Status: Mental Status NL, Mood NL A/P-Cardiology Admission Diagnosis Hypotensive shock Congestive heart failure, chronic compensated left ventricular systolic dysfunction, ischemic cardiomyopathy Coronary artery disease Hyperlipidemia Assessment/Plan Family and patient requested comfort care. He is sedated at this time, sleeping. Had extensive history as described below, I will sign off at this point, please reconsult if needed Hypotensive shock secondary to cardiogenic shock, unable to tolerate dobutamine due to tachycardia, unable to tolerate beta hollie due to hypotension Congestive heart failure, acute left ventricular systolic dysfunction, ejection fraction 10 percent, ischemic cardiomyopathy, cannot tolerate beta blockers, ALBERT inhibitor and/or ARB due to hypotension. Coronary artery disease history of CABG, cardiac catheterization was carried out in September 2016 showing patent AHMADI to LAD and vein graft to the right coronary artery, 60 percent stenosis in the vein graft, small vessel disease, nonobstructive disease History of permanent pacemaker/ICD, good sensing and capture activity. Had history of multiple episodes of ventricular tachycardia required pacing, [employer] / [place] [place] [employer] defibrillator, need to be deactivated History of GI bleed Hyperlipidemia Confusion, dementia, unknown duration, managed by primary care physician History of gallstones, appendectomy, prostatectomy Patient is DO NOT RESUSCITATE Overall poor prognosis Clinical Quality Measures DVT/VTE Risk/Contraindication: Risk Factor Score Per Nursin RFS Level Per Nursing on Admit: 4+=Very High NIC LOVE MD Jun 06, 2018 09:05
--- NOTE | 2018-06-06 11:45 | NUR ---
Pastoral Care Visit, pts , brother and sister at bedside. Pts share more of their life story and also difficulties of seeing pt like this. We conversed about pts health and age and heaven and comfort. I provided, support, encouragement and prayer.
--- NOTE | 2018-06-06 13:53 | Progress Note-Hospitalist ---
Progress Note Progress Notes/Assess & Plan Date Seen 06/06/18 Time Seen by Provider: 13:49 Assessment & Plan The patient is an 87-year-old white male on day number for this hospitalization for congestive heart failure. He is deeply asleep during my visit and does not respond to questioning or touch. He is known to have a deeply impaired ejection fraction. Physical exam: We have an elderly white male. His breathing pattern is normal. Lungs show distant breath sounds but no rales or rhonchi. CV is slightly irregular. No murmurs noted. Extremities show 1+ pedal edema. Impression: Resolving congestive heart failure. 2.severe cardiomyopathy. Plan: Discharge planning MASSIMO HERNANDEZ MD Jun 06, 2018 13:53
[2018-06-06] MEDS: SCOPOLAMINE 1.5 MG (TRANSDERM-SCOP) PATCH TD NR (14:13)
--- NOTE | 2018-06-06 14:14 | NUR ---
SCOPOLAMINE PATCH NOT CHANGED PATCH WAS APPLIED YESTERDAY. INSTRUCTIONS STAY TO CHANGE EVERY 3 DAYS.
--- NOTE | 2018-06-06 14:20 | NUR ---
KATHIE HUGHES --THE PATIENT'S NIECE (HIS IS HER MOM'S SISTER)--WOULD LIKE TO BE CALLED TO COME JIG HAND THE PATIENT'S IF ANYTHING HAPPENS TO THE PATIENT. SHE DOESN'T WANT HER DRIVING HERSELF HOME. HER PHONE NUMBER IS [phone].
--- NOTE | 2018-06-06 15:38 | NUR ---
In investigation of the Swathi Valverde's request to be called I spoke with patient's ...who reports that she had accidentally let it slip that he was here. She had not intended to tell anyone but the patient's siblings. Shabnam would NOT like Swathi called and she will call her in her own time.
--- NOTE | 2018-06-06 16:01 | NUR ---
Pastoral Care Visit.
[2018-06-06] MEDS ORDERED: MENTHOL/ZINC OXIDE (CALMOSEPTINE) 113 GM TUBE TOP SCH (21:00)
[2018-06-07] MEDS: LORazepam INJ 2 MG/ML (ATIVAN) VIAL IVP PRN (00:12)
[2018-06-07] MEDS: morphine INJ 4 MG/ML 1 ML (VIAL/SYRINGE) IVP PRN (00:13)
--- NOTE | 2018-06-07 09:02 | NUR ---
Vasyl Moore was phoned at 0825 to notify chaplains of [facility]: This [employer] Machine Tool [employer]ter reported upstairs and provided staff support. and family traveling from [place]. Staff will contact the Chaplains when family arrives.
--- NOTE | 2018-06-07 10:57 | NUR ---
I met and pts sister at bedside when they arrived, sat and stayed with them until home arrived, listened during life review, provided support and prayer, both ladies tearful but coping well.
[2018-06-08] MEDS ORDERED: SCOPOLAMINE PATCH REMOVAL TP SCH (14:00)
== END 2018-06-07 08:00 | disposition expired | DRG 292 ==
LOC: ICU 19:36 → 4TH 06-05 17:40
PROVIDERS: ADMIT Family Medicine; ATTEND Family Medicine
DX: I11.0 Hypertensive heart disease with heart failure (principal); I50.23 Acute on chronic systolic (congestive) heart failure; R57.0 Cardiogenic shock; I25.810 Atherosclerosis of coronary artery bypass graft(s) without angina pectoris; I25.5 Ischemic cardiomyopathy; I47.1 Supraventricular tachycardia; J90 Pleural effusion, not elsewhere classified; Z66 Do not resuscitate; Z51.5 Encounter for palliative care; I48.2 Chronic atrial fibrillation; I95.9 Hypotension, unspecified; R09.02 Hypoxemia; D47.3 Essential (hemorrhagic) thrombocythemia; E78.5 Hyperlipidemia, unspecified; F03.90 Unspecified dementia, unspecified severity, without behavioral disturbance, psychotic disturbance, mood disturbance, and anxiety; M19.91 Primary osteoarthritis, unspecified site; Z95.1 Presence of aortocoronary bypass graft; Z87.891 Personal history of nicotine dependence; Z95.810 Presence of automatic (implantable) cardiac defibrillator
CPT/HCPCS: 36415; 71045; 80048; 80053; 82805; 83735; 83880; 84100; 85025; 85027; 87081; 93306